=== PATIENT | male | born 1940 | race African-American/Black ===

== ENCOUNTER 2020-03-16 21:09 | Emergency (ER) | payer OTHER ==
[2020-03-16] MEDS ORDERED: LIDOCAINE VISCOUS 2% SOLN 15 ML UDC ONE (22:18)
[2020-03-16] MEDS ORDERED: ONDANSETRON 4 MG/2 ML VIAL ONE (22:50)
[2020-03-16] MEDS ORDERED: MORPHINE 4 MG/ML SYR ONE (22:50)
[2020-03-16] MEDS ORDERED: WATER FOR INJ,STERILE 10 ML ONE (23:31)
[2020-03-16] MEDS ORDERED: MEPERIDINE HCL 50 MG/ML ONE (23:39)
[2020-03-16 23:54] LABS: Absolute Lymphocytes (CBC) 2.9 K/uL (0.7-4.9); Basophils % 1.1 % (0-1.3); RBC Red Blood Cell Count 4.96 M/uL (4.33-5.43)
[2020-03-17 00:02] LABS: Potassium 3.7 mmol/L (3.5-5.1)
[2020-03-17 00:05] LABS: Urine Blood 3+ (NEG); Urine Glucose NEGATIVE (NEG); Urine Protein 2+ (NEG)
[2020-03-17 00:44] LABS: Urine Bacteria <20 /HPF (NONE SEEN); Urine Culture Reflex Order REFLEXED; Urine RBC >50 /HPF (NONE SEEN)
[2020-03-17] MEDS ORDERED: CIPROFLOXACIN 400mg IV 400 MG/200 ML BAG IV ONE (01:04)
--- NOTE | 2020-03-17 08:07 | ER ---
Nurse's Notes [facility] Name: Kade Benjamin Age: 79 yrs Sex: Male : 1940 Arrival Date: 03/16/2020 Time: 21:13 Bed 20 Private MD: Diagnosis: Acute retention of urine. Prostatemegaly. Elevated PSA. Urinary tract infection Presentation: 03/16 21:25 Chief complaint: Patient states: penile area area is hurting and blood in urine started rr5 2 weeks ago went to a doctor prescribed some medication ( doxycycline and hydrochrolot) but but 3-4 days ago my urine just dripping and it hurts a lot. denies any discharge. 21:25 Coronavirus screen: Client denies travel out of the [place] in the last 14 days. At this rr5 time, the client does not indicate any symptoms associated with coronavirus-19. Ebola Screen: Patient negative for fever greater than or equal to 101.5 degrees Fahrenheit, and additional compatible Ebola Virus Disease symptoms Patient denies exposure to infectious person. Patient denies travel to an Ebola-affected area in the 21 days before illness onset. Initial Sepsis Screen: Does the patient meet any 2 criteria? No. Patient's initial sepsis screen is negative. Does the patient have a suspected source of infection? No. Patient's initial sepsis screen is negative. Risk Assessment: Do you want to hurt yourself or someone else? Patient reports no desire to harm self or others. Onset of symptoms was February 2020. 21:25 Method Of Arrival: Ambulatory rr5 21:25 Acuity: MARGE 3 rr5 Historical: - Allergies: 21:32 No Known Allergies; rr5 - Home Meds: 21:32 hypertension medication [Active]; rr5 - PMHx: 21:32 Hypertension; rr5 - PSHx: 21:32 Appendectomy; rr5 - Immunization history:: Adult Immunizations not up to date. - Social history:: Smoking status: unknown Patient/guardian denies using alcohol, street drugs, tobacco products. Screenin:25 Abuse screen: Denies threats or abuse. Denies injuries from another. Nutritional rr5 screening: No deficits noted. Tuberculosis screening: No symptoms or risk factors identified. Fall Risk None identified. Total Flores Fall Scale indicates No Risk (0-24 pts). Assessment: 21:25 General: Appears in no apparent distress. uncomfortable, Behavior is calm, cooperative, rr5 appropriate for age. Pain: Complains of pain in pelvis and penile area Pain currently is 10 out of 10 on a pain scale. Quality of pain is described as aching, Pain began gradually, Is intermittent. 21:25 Neuro: Level of Consciousness is awake, alert, obeys commands, Oriented to person, rr5 place, time, situation. Cardiovascular: Capillary refill < 3 seconds Patient's skin is warm and dry. Respiratory: Airway is patent Respiratory effort is even, unlabored, Respiratory pattern is regular, symmetrical. GI: No signs and/or symptoms were reported involving the gastrointestinal system. : Urine is blood tinged, Reports cramping, incontinence, pain with urination. EENT: No signs and/or symptoms were reported regarding the EENT system. Derm: Skin is pink, warm \T\ dry. Musculoskeletal: Circulation, motion, and sensation intact. Capillary refill < 3 seconds. 22:15 Reassessment: tried to insert Larkin catheter, positive resistance. Ed provider aware rr5 will try to use coude. 03/17 00:01 Reassessment: Patient appears in no apparent distress at this time. Patient is alert, rr5 oriented x 3, equal unlabored respirations, skin warm/dry/pink. awaiting for laboratory results and CT scan procedure. 00:46 Reassessment: Patient appears in no apparent distress at this time. Patient is alert, rr5 oriented x 3, equal unlabored respirations, skin warm/dry/pink. send to CTscan Patient states symptoms have improved. 01:32 Reassessment: Patient appears in no apparent distress at this time. Patient is alert, rr5 oriented x 3, equal unlabored respirations, skin warm/dry/pink. awaiting for CT result. Patient states feeling better. Patient states symptoms have improved. 02:41 Reassessment: Patient appears in no apparent distress at this time. Patient and/or jb4 family updated on plan of care and expected duration. Pain level reassessed. Patient is alert, oriented x 3, equal unlabored respirations, skin warm/dry/pink. PT given contact information for DR. Jackson, and DR. Munoz and their office address . Vital Signs: 03/16 21:25 BP 173 / 122; Pulse 91; Resp 19; Temp 98.4; Pulse Ox 99% ; Weight 79.38 kg; Pain 10/10; rr5 22:40 BP 148 / 70; Pulse 85; Resp 17; Pulse Ox 99% ; rr5 23:30 BP 185 / 89; Pulse 110; Resp 16; Pulse Ox 99% ; Pain 10/10; rr5 03/17 00:00 BP 152 / 87; Pulse 80; Resp 16; Pulse Ox 99% ; Pain 0/10; rr5 00:45 BP 141 / 75; Pulse 75; Resp 16; Pulse Ox 99% ; rr5 02:00 BP 141 / 82; Pulse 86; Resp 16; Pulse Ox 100% on R/A; jb4 ED Course: 03/16 21:13 Patient arrived in ED. am2 21:25 Patient has correct armband on for positive identification. Bed in low position. Call rr5 light in reach. Side rails up X2. Pulse ox on. NIBP on. 21:27 Naveen Desai RN is Primary Nurse. rr5 21:28 Quang Mckee MD is Attending Physician. pkl 21:31 Triage completed. rr5 21:32 Arm band placed on. rr5 22:05 Bladder scan completed. 836 ml. rr5 22:40 Inserted saline lock: 20 gauge in right hand, using aseptic technique. rr5 23:30 Coud inserted, using sterile technique, 16 Fr. Returned bloody urine. To gravity rr5 drainage. Urine specimen collected. 23:59 Bladder irrigated via Larkin with 500 ml normal saline Patient tolerated well blood rr5 clots noted. 03/17 02:00 No provider procedures requiring assistance completed. IV discontinued, intact, jb4 bleeding controlled, No redness/swelling at site. Pressure dressing applied. 08:32 CT Abd/Pelvis - Without Contrast In Process Unspecified. EDMS Administered Medications: 03/16 22:40 Drug: morphine 4 mg {Note: rass 0.} Route: IVP; Site: right hand; rr5 23:10 Follow up: Response: No adverse reaction; RASS: Alert and Calm (0) rr5 22:40 Drug: Zofran (Ondansetron) 4 mg Route: IVP; Site: right hand; rr5 23:40 Follow up: Response: No adverse reaction rr5 23:30 Drug: Demerol 50 mg {Note: rass 0.} Route: IVP; Site: right hand; rr5 03/17 00:30 Follow up: Response: No adverse reaction; Pain is decreased; RASS: Alert and Calm (0) rr5 00:45 Drug: Ciprofloxacin 400 mg Volume: 200 ml; Route: IVPB; Infused Over: 60 mins; Site: rr5 right hand; Output: 00:30 Urine: 750ml (Larkin); Total: 750ml. rr5 02:00 Urine: 300ml (Larkin); Total: 1050ml. jb4 Outcome: 02:17 Discharge ordered by . pkreji 02:43 Discharged to home ambulatory, with family. jb4 02:43 Condition: stable 02:43 Discharge instructions given to patient, Instructed on discharge instructions, follow up and referral plans. medication usage, Demonstrated understanding of instructions, follow-up care, medications, Prescriptions given X 1. 02:43 Patient left the ED. jb4 Signatures: Dispatcher [employer] EDMS Qunag Mckee MD MD pkJhonny Puentes, RN RN jb4 Diana Jarvis Raymond, RN RN rr5
--- NOTE | 2020-03-17 08:07 | EDPHYS ---
Physician Documentation [facility] Name: Kade Benjamin Age: 79 yrs Sex: Male : 1940 Arrival Date: 03/16/2020 Time: 21:13 Bed 20 Private MD: ED Physician Quang Mckee HPI: 03/16 21:37 This 79 yrs old Black Male presents to ER via Ambulatory with complaints of Penile pkl Pain, Pain With Urination. 21:48 This 79 yrs old Black Male presents to ER via Ambulatory with complaints of Penile pkl Pain, Pain With Urination. 21:48 The patient presents with urinary symptoms, dribbling of urine, urinary frequency, pkl retention, blood in urine. Onset: The symptoms/episode began/occurred 1 month(s) ago, and became worse today. Historical: - Allergies: 21:32 No Known Allergies; rr5 - Home Meds: 21:32 hypertension medication [Active]; rr5 - PMHx: 21:32 Hypertension; rr5 - PSHx: 21:32 Appendectomy; rr5 - Immunization history:: Adult Immunizations not up to date. - Social history:: Smoking status: unknown Patient/guardian denies using alcohol, street drugs, tobacco products. ROS: 21:48 Eyes: Negative for injury, pain, redness, and discharge, ENT: Negative for injury, pkl pain, and discharge, Neck: Negative for injury, pain, and swelling, Cardiovascular: Negative for chest pain, palpitations, and edema, Respiratory: Negative for shortness of breath, cough, wheezing, and pleuritic chest pain. 21:48 Abdomen/GI: Negative for abdominal pain, nausea, vomiting, and diarrhea. 21:48 Back: Negative for acute changes. 21:48 : Positive for urinary symptoms, urinary frequency, small amounts, hematuria. 21:48 MS/extremity: Negative for acute changes. 21:48 Skin: Negative for rash. 21:48 Neuro: Negative for altered mental status. Exam: 21:48 Head/Face: Normocephalic, atraumatic. Eyes: Pupils equal round and reactive to light, pkl extra-ocular motions intact. Lids and lashes normal. Conjunctiva and sclera are non-icteric and not injected. Cornea within normal limits. Periorbital areas with no swelling, redness, or edema. ENT: Nares patent. No nasal discharge, no septal abnormalities noted. Tympanic membranes are normal and external auditory canals are clear. Oropharynx with no redness, swelling, or masses, exudates, or evidence of obstruction, uvula midline. Mucous membranes moist. Neck: Trachea midline, no thyromegaly or masses palpated, and no cervical lymphadenopathy. Supple, full range of motion without nuchal rigidity, or vertebral point tenderness. No Meningismus. Chest/axilla: Normal chest wall appearance and motion. Nontender with no deformity. No lesions are appreciated. Cardiovascular: Regular rate and rhythm with a normal S1 and S2. No gallops, murmurs, or rubs. Normal PMI, no JVD. No pulse deficits. Respiratory: Lungs have equal breath sounds bilaterally, clear to auscultation and percussion. No rales, rhonchi or wheezes noted. No increased work of breathing, no retractions or nasal flaring. 21:48 Abdomen/GI: Bowel sounds: normal, Palpation: abdomen is soft and non-tender, in all quadrants, Rectal exam: Prostate: enlarged, the exam is chaperoned by the nurse. 21:48 Back: Exam negative for acute changes. 21:48 : Exam negative for acute changes. 21:48 Musculoskeletal/extremity: Exam is negative for acute changes. 21:48 Skin: Exam negative for rash. 21:48 Neuro: Orientation: is normal, Mentation: is normal, Cranial nerves: grossly normal, Motor: is normal. Vital Signs: 21:25 BP 173 / 122; Pulse 91; Resp 19; Temp 98.4; Pulse Ox 99% ; Weight 79.38 kg; Pain 10/10; rr5 22:40 BP 148 / 70; Pulse 85; Resp 17; Pulse Ox 99% ; rr5 23:30 BP 185 / 89; Pulse 110; Resp 16; Pulse Ox 99% ; Pain 10/10; rr5 03/17 00:00 BP 152 / 87; Pulse 80; Resp 16; Pulse Ox 99% ; Pain 0/10; rr5 00:45 BP 141 / 75; Pulse 75; Resp 16; Pulse Ox 99% ; rr5 02:00 BP 141 / 82; Pulse 86; Resp 16; Pulse Ox 100% on R/A; jb4 MDM: 03/16 21:28 Patient medically screened. pkl 03/17 02:12 Data reviewed: vital signs, nurses notes, lab test result(s), radiologic studies, CT pkl scan. ED course: Patient feeling better. Discussed lab and CT Scan results with patient. Advised to follow up with Urologist in 2 to 3 days. Patient understood instructions. 03/16 22:49 Order name: CBC with Diff; Complete Time: 00:35 pkl 03/16 22:49 Order name: Chem 7; Complete Time: 00:35 pkl 03/16 22:49 Order name: Creatinine, Serum pkl 03/16 22:57 Order name: Psa Screen; Complete Time: 00:35 pkl 03/16 23:38 Order name: Urine Microscopic Only; Complete Time: 01:24 rr5 03/16 23:39 Order name: Urine Dipstick--Ancillary (enter results) tt3 03/16 22:14 Order name: Bladder Scanner; Complete Time: 22:14 rr5 03/16 22:14 Order name: Larkin; Complete Time: 23:59 rr5 03/17 00:40 Order name: Urine Culture pkl 03/17 00:40 Order name: CT Abd/Pelvis - Without Contrast pkl 03/16 22:14 Order name: Urine Dipstick-Ancillary (obtain specimen); Complete Time: 23:59 rr5 03/16 22:49 Order name: Saline Lock; Complete Time: 22:50 pkl 03/16 23:59 Order name: Bladder Irrigation; Complete Time: 23:59 rr5 Administered Medications: 03/16 22:40 Drug: morphine 4 mg {Note: rass 0.} Route: IVP; Site: right hand; rr5 23:10 Follow up: Response: No adverse reaction; RASS: Alert and Calm (0) rr5 22:40 Drug: Zofran (Ondansetron) 4 mg Route: IVP; Site: right hand; rr5 23:40 Follow up: Response: No adverse reaction rr5 23:30 Drug: Demerol 50 mg {Note: rass 0.} Route: IVP; Site: right hand; rr5 03/17 00:30 Follow up: Response: No adverse reaction; Pain is decreased; RASS: Alert and Calm (0) rr5 00:45 Drug: Ciprofloxacin 400 mg Volume: 200 ml; Route: IVPB; Infused Over: 60 mins; Site: rr5 right hand; Disposition: 03/17/20 02:17 Discharged to Home. Impression: Acute retention of urine. Prostatemegaly. Elevated PSA. Urinary tract infection. - Condition is Stable. - Prescriptions for Cipro 500 mg Oral Tablet - take 1 tablet by ORAL route every 12 hours for 7 days; 14 tablet. - Medication Reconciliation Form, Thank You Letter, Antibiotic Education, Prescription Opioid Use form. - Follow up: Private Physician; When: 2 - 3 days; Reason: Re-evaluation by your physician. - Problem is new. - Symptoms have improved. Signatures: Dispatcher [employer] EDMS Quang Mckee MD MD pkl Jhonny Álvarez, RN RN jb4 Naveen Desai RN RN rr5 Corrections: (The following items were deleted from the chart) 02:37 02:17 03/17/2020 02:17 Discharged to Home. Impression: Acute retention of urine. pkl Prostatemegaly. Elevated PSA. Urinary tract infection. Condition is Stable. Forms are Medication Reconciliation Form, Thank You Letter, Antibiotic Education, Prescription Opioid Use. Follow up: Private Physician; When: 2 - 3 days; Reason: Re-evaluation by your physician. Problem is new. Symptoms have improved. pkl 02:43 02:37 03/17/2020 02:17 Discharged to Home. Impression: Acute retention of urine. jb4 Prostatemegaly. Elevated PSA. Urinary tract infection. Condition is Stable. Prescriptions for Cipro 500 mg Oral Tablet - take 1 tablet by ORAL route every 12 hours for 7 days; 14 tablet. and Forms are Medication Reconciliation Form, Thank You Letter, Antibiotic Education, Prescription Opioid Use. Follow up: Private Physician; When: 2 - 3 days; Reason: Re-evaluation by your physician. Problem is new. Symptoms have improved. pkl
[2020-03-17 08:26] VITALS: TEMP 98.4
[2020-03-17 08:35] VITALS: BP 141/82; O2SAT 100
--- NOTE | 2020-03-17 11:06 | RAD REPORT ---
EXAM DESCRIPTION: CT - Abdomen Pelvis Wo Contrast - 03/17/2020 6:57 am CLINICAL HISTORY: 79 years Male Urine Retention TECHNIQUE: Contiguous axial images obtained through the abdomen and pelvis without IV contrast. Whitley nal and sagittal reformatted images provided. This CT exam was performed according to our departmental dose-optimization program, which includes on e or more of the following dose reduction techniques: automated exposure control, adjustment of the m A and/or kV according to patient size, and/or use of iterative reconstruction technique. COMPARISON: No prior exams provided for comparison. FINDINGS: There is mild to moderate bilateral hydroureteronephrosis. No urinary calculus. Bilateral renal cysts. Larkin catheter in place within the decompressed urinary bladder. There is at least moderate enlargeme nt of the prostate. Both the bladder and prostate are suboptimally evaluated on this noncontrast stud y. Distal esophageal diverticulum without inflammation. No visualized bowel inflammation, obstruction, p neumatosis, free intraperitoneal air, abscess, or ascites. Prior appendectomy. Scattered distal colon ic diverticuli. The lung bases, liver, pancreas, biliary tree, gallbladder, some bleeding, and adrenal glands are nor mal. Atherosclerosis without abdominal aortic aneurysm or retroperitoneal hemorrhage. Chronic degenerative changes of the spine. IMPRESSION: Mild/moderate bilateral hydroureteronephrosis. No urinary calculus. At least moderate en largement of the prostate with a Larkin catheter decompressing the urinary bladder. Both the bladder a nd prostate are suboptimally evaluated on this noncontrast study. No other acute abdominal or pelvic findings. Electronically signed by: Gretchen Denis MD 03/17/2020 1:51 AM CDT Due to temporary technical issues with the PACS/Fluency reporting system, reports are being signed by the in house radiologist without review as a courtesy to ensure prompt reporting. The interpreting r adiologist is fully responsible for the content of the report.
== END 2020-03-17 02:43 | disposition home or self-care (01) ==
LOC: ER 21:09
DX: N39.0 Urinary tract infection, site not specified (principal); R31.9 Hematuria, unspecified; R97.20 Elevated prostate specific antigen [PSA]; N40.0 Benign prostatic hyperplasia without lower urinary tract symptoms; I10 Essential (primary) hypertension
CPT/HCPCS: 87088; 85025; 87086; 80048; 36415; 74176; 51700; 96375; 96374; 99285; G0103; J2175; J2405; J0744; 81003; 81015

== ENCOUNTER 2020-05-06 09:09 | Day surgery (SDC) | payer OTHER ==
[2020-04-29 15:12] LABS: Absolute Lymphocytes (CBC) 2.1 K/uL (0.7-4.9); Basophils % 0.8 % (0-1.3); Hematocrit 44.2 % (39.6-49.0); Lymphocytes % 32.1 % (15.3-44.8)
[2020-04-29 15:21] LABS: Protime INR 1.05
--- NOTE | 2020-04-29 15:24 | RAD REPORT ---
EXAM DESCRIPTION: RAD - Chest Pa And Lat (2 Views) - 04/29/2020 3:10 pm CLINICAL HISTORY: pre op, pending bladder surgery COMPARISON: None TECHNIQUE: Frontal and lateral views of the chest were obtained. FINDINGS: The lungs are clear. Heart size is normal and central vasculature is within normal limit s. No pleural effusion or pneumothorax seen. No acute bony finding noted. No aortic abnormality. IMPRESSION: No acute cardiopulmonary process.
[2020-04-29 15:28] LABS: Potassium 3.4 mmol/L (3.5-5.1)
[~2020-05-06 09:09] MED LIST: AMPICILLIN SODIUM 2 GM in NA CHLORIDE 0.9% 100 ML IVPB ONE; Gentamicin Inj 160 MG in NA CHLORIDE 0.9% 100 ML IV ONE
[2020-05-06] MEDS ORDERED: Ringers Lactate 1,000 ML IV ONE (09:50)
[2020-05-06] MEDS ORDERED: FENTANYL CITR 100 MCG/2 ML ONE ×3 (12:05→13:31)
[2020-05-06] MEDS ORDERED: propofoL 200 MG/20 ML VIAL IV ONE ×2 (12:05→13:00)
[2020-05-06] MEDS ORDERED: LIDOCAINE 1% MPF 5 ML VIAL ONE (12:05)
[2020-05-06] MEDS ORDERED: EPHEDRINE SULF 50 MG/ML VIAL ONE (12:33)
[2020-05-06] MEDS ORDERED: NS 0.9% VIAL 10 ML ONE (12:33)
[2020-05-06] MEDS ORDERED: dexAMETHasone 10 MG/ML VIAL ONE (13:00)
[2020-05-06] MEDS ORDERED: ONDANSETRON 4 MG/2 ML VIAL ONE (13:01)
[2020-05-06] MEDS ORDERED: ROCURONIUM 50 MG/5 ML VIAL IV ONE (13:39)
[2020-05-06] MEDS ORDERED: NEOSTIGMINE 1 MG/ML -5 ML ONE (13:43)
[2020-05-06] MEDS ORDERED: GLYCOPYRROLATE 0.2 MG/ML SYR ONE (13:43)
[2020-05-06] MEDS ORDERED: NA CHLORIDE 0.9% 1,000 ML ONE ×2 (14:37→14:38)
[2020-05-06 14:41] VITALS: O2SAT 100
[2020-05-06 15:01] VITALS: TEMP 97.3
[2020-05-06] MEDS ORDERED: SUCCINYLCHOLINE 20 MG/ML (10 ML) IV ONE (15:23)
[2020-05-06 17:05] VITALS: BP 168/88
--- NOTE | 2020-05-07 08:41 | OP ---
Surgeon: SANDY DINERO Preoperative Diagnoses: 1.Bladder tumor. 2.Gross hematuria. 3.Significantly elevated PSA. Postoperative Diagnoses: 1.Bladder tumor. 2.Gross hematuria. 3.Significantly elevated PSA. Principal Procedures: 1.Cystoscopy, transurethral resection of a bladder neck tumor. 2.Channel transurethral resection of prostate. Indication For Proecdure: This is a 79-year-old gentleman who presented to the Urology Clinic with g ross hematuria and underwent evaluation revealing bilateral hydronephrosis and a large intravesically projecting tumor with clot burden. He was treated with antimicrobial therapy for 2 weeks given a si gnificantly elevated PSA and the potential for prostatitis prior to a urine cytology which revealed h igh-grade urothelial carcinoma cells suspicious. As such, he was counseled about the potential that there could be both a bladder tumor as well as prostate cancer and the need for more timely operative evaluation to form that diagnosis since a bladder cancer would be treated much differently than a pr ostate cancer. Findings: Large intravesically projecting bladder neck tumor with nodular growth undermining the tri gone and causing a hit up appearance of the bilateral ureteral orifices. Procedure Note: The patient was consented in the preoperative holding area before being transferred to the operative suite, where general anesthesia was induced. He was given ampicillin 2 g and gentam icin 160 mg IV antimicrobial prophylaxis. Pneumo boots were provided for DVT prophylaxis. He was pl aced in lithotomy position, padded and secured to the table appropriately. His genitalia were preppe d using Hibiclens, and he was draped in standard fashion. The case was begun using urethral sounds t o dilate his meatus and fossa navicularis to 30 [place]. Then, using a visual obturator and 27-[place] outer sheath for the bipolar resectoscope, the urethra was traversed and with great difficulty navig ated around an intravesically projecting mass extending from the median lobe portion of the prostate and involving also the right lateral lobe of the prostate causing significant difficulty navigating a nd entering into the bladder. However, I was able to enter the bladder and then began to survey it. There was significant gross hematuria and clot, and so the bladder was evacuated off that fluid and then yulisa evacuated off the clot. Once I was able to visualize the bladder wall in order to avoid p osterior injury, I began resecting the intravesically projecting component of the tumor and taking it down to smooth bladder neck fibers that were eventually visible. I then extended the resection arou nd to the right lateral lobe and remove the intravesically projecting component of the tumor there. I was intermittently able to visualize the left ureteral orifice and then ultimately was able to visu sadia the right ureter orifice. At one point during the case, the left ureteral orifice was no longe r visualized and was likely resected. The right ureteral orifice was subsequently visualized, but wa s again in an abnormal configuration because of nodular material/tumor beneath it. As such, care was taken to avoid extensive fulguration in the region of the putative left ureteral orifice, and I then turned my attention to the median lobe of the prostate. I then resected this down to the level of t he verumontanum creating a nice channel for voiding. Any additional anteriorly overhanging tumor was resected and the bladder was surveyed for any tumor and/or prostatic urethral chips. These were ell ik evacuated and sent for pathologic analysis. A careful search for bleeding was undertaken and agai n sparing the region around the putative left ureteral orifice that was resected, I fulgurated any bl eeding vessels at the bladder neck and within the prostatic urethral lumen and efflux of fluid was ve ry light pink, so the scope was removed with no arterial bleeding noted, and I replaced a 24-[place] 3 -way catheter with ease into his bladder. 30 cc were placed into the balloon and CBI was initiated w ith slow-moderate drip rate normal saline. The patient was then awakened from general anesthesia aft er being taken out of the lithotomy position, transferred to a stretcher, and then transferred to the recovery room in good condition. Complications: Resection of the left ureteral orifice. Disposition: Given the nodular presence of likely tumor beneath the trigone and obstructing the uret eral orifices causing bilateral hydronephrosis observed preoperatively and given the resection of the left ureteral orifice performed today likely, I will recommend followup ultrasound evaluation within the next 2-3 days to assess for progression of the hydronephrosis and potential need for percutaneou s nephrostomy tube placement. He will continue his antimicrobial therapy prescribed preoperatively, and we will plan removal of the 3 way Larkin catheter on either Monday or Monday in the Urology Clinic . Followup will then be established in 1-2 weeks to discuss pathology of the tumor resected, and sub sequent treatment will be determined from that point. We also will repeat his PSA once the urethral Larkin catheter is removed prior to his followup to discuss the pathology 1-2 weeks later. ROSALIND/CHUCK Voice ID: [id number] Report ID: [id number]
== END 2020-05-06 17:00 | disposition home or self-care (01) ==
LOC: OR 09:09
PROVIDERS: ATTEND Urology
PROC: 0TBC8ZZ Excision of Bladder Neck, Via Natural or Artificial Opening Endoscopic (ICD-10-PCS; 2020-05-06)
PROC: 0VB08ZZ Excision of Prostate, Via Natural or Artificial Opening Endoscopic (ICD-10-PCS; principal; 2020-05-06 11:00)
DX: C61 Malignant neoplasm of prostate (principal); Z20.828 Contact with and (suspected) exposure to other viral communicable diseases; I12.9 Hypertensive chronic kidney disease with stage 1 through stage 4 chronic kidney disease, or unspecified chronic kidney disease; N18.9 Chronic kidney disease, unspecified; C67.5 Malignant neoplasm of bladder neck; N99.81 Other intraoperative complications of genitourinary system; N13.30 Unspecified hydronephrosis
CPT/HCPCS: 93005; 85025; 80048; 36415; 85610; 88307; 85730; 71046; 53899; 52500; U0002; J2704 ×2; J0330; J1580; J3010 ×3; J1100; J2710; J7120; J7030 ×2; J2405; J0290; 88305

== ENCOUNTER 2021-08-02 20:13 | Emergency (ER) | payer OTHER ==
--- OUTSIDE RECORDS SUMMARY | 2021-08-02 20:15 | XMS REPORT | Continuity of Care Document ---
:1940 Author Organization [facility] Address [address] [place] [address] Care Team Providers Name Role Phone StoreyTylor Oneyda Attending Clinician Unavailable Problems This patient has no known problems. Allergies, Adverse Reactions, Alerts This patient has no known allergies or adverse reactions. Medications This patient has no known medications. Procedures This patient has no known procedures. Encounters Start End Encounter Admission Attending Care Care Encounter Source Date/Time Date/Time Type Type Clinicians Facility Department ID 2021-07-14 Outpatient Tylor Storey [facility] [id number] [facility] 13:02:23 [id number] [facility] 2021-07-14 Outpatient [facility] [id number] [facility] [address] 12:49:20 [id number] [facility] 2021-07-14 Outpatient [facility] [id number] [facility] 12:35:50 [id number] [facility] 2021-07-14 Outpatient [facility] [id number] [facility] 12:17:36 [id number] [facility] 2021-07-14 Outpatient [facility] [id number] [facility] 12:10:59 [id number] [facility] 2020-11-11 2020-11-11 Outpatient [facility] [id number] [facility] 2020-11-06 2020-11-06 [facility] [id number] [facility] 2020-10-15 2020-10-15 [facility] [id number] [facility] 2020-10-14 2020-10-14 [facility] [id number] [facility] 2020-09-24 2020-09-24 [facility] [id number] [facility] 2020-08-21 2020-08-21 Out[facility] [id number] [facility] 2020-08-20 2020-08-20 [facility] [id number] [facility] 2020-06-18 2020-06-18 [facility] [id number] [facility] 2020-06-15 2020-06-15 [facility] [id number] [facility] 2020-06-10 2020-06-10 Out[facility] [id number] [facility] 2020-05-26 2020-05-26 Out[facility] [id number] [facility] 2020-05-25 2020-05-25 Out[facility] [id number] [facility] Results This patient has no known results.
[2021-08-02] MEDS ORDERED: ONDANSETRON 4 MG/2 ML VIAL ONE (21:21)
[2021-08-02] MEDS ORDERED: MORPHINE 4 MG/ML SYR ONE ×2 (21:21→23:20)
[2021-08-02 21:36] LABS: Urine Blood 3+ (Negative); Urine Glucose Negative (Negative); Urine Protein 2+ (Negative); Urine Specific Gravity >=1.030 (1.005-1.030); Urine pH 5.5 (5.0-7.0)
[2021-08-02 22:35] LABS: SARS-COV-2 RT PCR NEGATIVE (NEGATIVE)
[2021-08-02 23:23] LABS: Absolute Lymphocytes (CBC) 1.7 K/uL (0.7-4.9); Hematocrit 43.3 % (39.6-49.0); Lymphocytes % 42.8 % (15.3-44.8); MPV 9.3 fL (7.6-11.3)
[2021-08-02 23:50] LABS: Albumin 3.3 g/dL (3.4-5.0); Bilirubin Direct 0.1 mg/dL (0-0.2); Bilirubin Total 0.5 mg/dL (0.2-1.0); Potassium 3.4 mmol/L (3.5-5.1); Protein, Total 7.4 g/dL (6.4-8.2)
[2021-08-02 23:57] LABS: Urine Bacteria <20 /HPF (NONE SEEN); Urine RBC >50 /HPF (NONE SEEN); Urine Urothelial Cells <5 /HPF (NONE SEEN)
--- NOTE | 2021-08-03 00:57 | EDPHYS ---
Physician Documentation [facility] Name: Kade Benjamin Age: 80 yrs Sex: Male : 1940 Arrival Date: 08/02/2021 Time: 20:16 Bed 24 Private MD: Tylor Storey T ED Physician Sumanth Foreman HPI: 08/02 20:47 This 80 yrs old Black Male presents to ER via Ambulatory with complaints of Flank Pain, pm1 Back Pain. 20:47 The patient complains of pain in the right mid back. The pain does not radiate. Onset: pm1 The symptoms/episode began/occurred 1 month(s) ago. Modifying factors: The symptoms are alleviated by nothing. the symptoms are aggravated by nothing. Associated signs and symptoms: Pertinent negatives: diarrhea, dysuria, fever, nausea, vomiting. Severity of pain: in the emergency department the pain is unchanged. The patient has not experienced similar symptoms in the past. Patient with current history of prostate cancer. Historical: - Allergies: 20:24 No Known Allergies; st1 - PMHx: 20:24 Hypertension; st1 - Immunization history:: Adult Immunizations up to date, Client reports receiving the 2nd dose of the Covid vaccine, Pneumococcal vaccine is up to date, Flu vaccine is up to date. - Social history:: Smoking status: Patient denies any tobacco usage or history of. - Code Status:: Full code. ROS: 20:47 Constitutional: Negative for fever, chills, and weight loss, Cardiovascular: Negative pm1 for chest pain, palpitations, and edema, Respiratory: Negative for shortness of breath, cough, wheezing, and pleuritic chest pain, Abdomen/GI: Negative for abdominal pain, nausea, vomiting, diarrhea, and constipation. 20:47 : Negative for injury, bleeding, discharge, and swelling, MS/Extremity: Negative for injury and deformity, Skin: Negative for injury, rash, and discoloration, Neuro: Negative for headache, weakness, numbness, tingling, and seizure. 20:47 Back: Positive for flank pain, on the right. 20:47 All other systems are negative. Exam: 20:47 Constitutional: This is a well developed, well nourished patient who is awake, alert, pm1 and in no acute distress. Head/Face: Normocephalic, atraumatic. 20:47 Skin: Warm, dry with normal turgor. Normal color with no rashes, no lesions, and no evidence of cellulitis. MS/ Extremity: Pulses equal, no cyanosis. Neurovascular intact. Full, normal range of motion. 20:47 Cardiovascular: Exam negative for acute changes, Rate: normal, Rhythm: regular, Pulses: no pulse deficits are appreciated, Heart sounds: normal. 20:47 Respiratory: Exam negative for acute changes, respiratory distress, shortness of breath, Breath sounds: are clear throughout. 20:47 Abdomen/GI: Exam negative for acute changes, Inspection: abdomen appears normal, Palpation: abdomen is soft and non-tender, in all quadrants. 20:47 Back: pain, that is mild, of the right mid back, vertebral tenderness, is not appreciated. 20:47 Neuro: Exam negative for acute changes, Orientation: is normal, Mentation: is normal, Motor: is normal, moves all fours. Vital Signs: 20:21 BP 141 / 83 Sitting; Pulse 87; Resp 16; Temp 97.8; Pulse Ox 99% on R/A; Weight 74.84 st1 kg; Height 5 ft. 11 in. (180.34 cm); Pain 10/10; 21:28 BP 135 / 86; Pulse 80; Resp 18; Pulse Ox 100% on R/A; lr4 22:49 BP 120 / 81; Pulse 76; Resp 18; Pulse Ox 100% on R/A; Pain 5/10; lr4 23:27 BP 114 / 84; Pulse 81; Resp 16; Pulse Ox 98% on R/A; lr4 08/03 01:40 BP 117 / 73; Pulse 69; Resp 16 S; Temp 98.5(O); Pulse Ox 99% on R/A; bb 08/02 20:21 Body Mass Index 23.01 (74.84 kg, 180.34 cm) st1 MDM: 08/02 20:34 Patient medically screened. [facility] 08/03 00:53 Data reviewed: vital signs. Data interpreted: Pulse oximetry: on room air is 98 %. pm1 Interpretation: normal. Counseling: I had a detailed discussion with the patient and/or guardian regarding: the historical points, exam findings, and any diagnostic results supporting the discharge/admit diagnosis, lab results, radiology results, the need for outpatient follow up, to return to the emergency department if symptoms worsen or persist or if there are any questions or concerns that arise at home. 08/02 20:47 Order name: Basic Metabolic Panel pm1 08/02 20:47 Order name: CBC with Diff pm1 08/02 20:47 Order name: Hepatic Function pm1 08/02 20:47 Order name: Lipase pm1 08/02 20:47 Order name: Basic Metabolic Panel; Complete Time: 23:54 EDMS 08/02 20:47 Order name: CBC with Automated Diff; Complete Time: 23:28 EDMS 08/02 20:47 Order name: Liver (Hepatic) Function; Complete Time: 23:54 EDMS 08/02 20:47 Order name: Lipase; Complete Time: 23:54 EDMS 08/02 21:36 Order name: Urine Dipstick-Ancillary; Complete Time: 22:08 EDMS 08/02 21:36 Order name: COVID-19/FLU A+B (Document "Date of Onset" if Symptomatic); Complete Time: cs9 22:45 08/02 22:07 Order name: Urine Microscopic Only; Complete Time: 00:09 lr4 08/02 22:46 Order name: CT Abd/Pelvis - IV Contrast Only pm1 08/02 23:59 Order name: Urine Culture EDMS 08/02 20:47 Order name: IV Saline Lock; Complete Time: 21:20 pm1 08/02 20:47 Order name: Labs collected and sent; Complete Time: 20:49 pm1 08/02 20:47 Order name: Urine Dipstick-Ancillary (obtain specimen); Complete Time: 21:37 pm1 Administered Medications: 08/02 21:27 Drug: morphine 4 mg Route: IVP; Site: left antecubital; lr4 21:37 Follow up: Response: Pain is decreased lr4 21:27 Drug: Zofran (Ondansetron) 4 mg Route: IVP; Site: left antecubital; lr4 21:37 Follow up: Response: Nausea is decreased lr4 23:21 Drug: morphine 4 mg Route: IVP; Site: left antecubital; lr4 23:44 Follow up: Response: No adverse reaction; Pain is decreased lr4 08/03 01:32 Drug: Rocephin (cefTRIAXone) 1 grams Route: IV; Rate: calculated rate; Site: left bb antecubital; 01:40 Follow up: IV Status: Completed infusion; IV Intake: 50ml bb Disposition: 09:01 Co-signature as Attending Physician, Sumanth Foreman MD I agree with the assessment and alessandro plan of care. Disposition Summary: 08/03/21 00:56 Discharge Ordered Location: Home pm1 Problem: new pm1 Symptoms: have improved pm1 Condition: Stable pm1 Diagnosis - Other intra-abdominal and pelvic swelling, mass and lump - bladder mass pm1 Followup: pm1 - With: Emergency Department - When: As needed - Reason: Worsening of condition Followup: pm1 - With: Private Physician - When: 2 - 3 days - Reason: Recheck today's complaints, Continuance of care, Re-evaluation by your physician Discharge Instructions: - Discharge Summary Sheet pm1 Forms: - Medication Reconciliation Form pm1 - Thank You Letter pm1 - Antibiotic Education pm1 - Prescription Opioid Use pm1 Prescriptions: - Bactrim DS 800-160 mg Oral Tablet - take 1 tablet by ORAL route every 12 hours for 10 days; 20 tablet; Refills: 0, pm1 Product Selection Permitted - Tylenol-Codeine #3 300 mg-30 mg Oral - take 2 tablet by ORAL route every 6 hours As needed; 20 tablet; Refills: 0, pm1 Product Selection Permitted Signatures: Dispatcher [employer] Sumanth Flower MD MD cha Ballard, Brenda, RN RN bb Shimon Yoo, GUILHERME DIRECTOR OF ACCREDITATION pm1 Maddison Rand RN RN st1 Kyra Arango RN RN lr4 Corrections: (The following items were deleted from the chart) 08/02 23:55 22:47 Abdomen Pelvis W Con+CT.RAD.BRZ ordered. EDMS EDMS
--- NOTE | 2021-08-03 00:57 | ER ---
Nurse's Notes [facility] Name: Kade Benjamin Age: 80 yrs Sex: Male : 1940 Arrival Date: 08/02/2021 Time: 20:16 Bed 24 Private MD: Tylor Storey T Diagnosis: Other intra-abdominal and pelvic swelling, mass and lump-bladder mass Presentation: 08/02 20:21 Chief complaint: Patient states: pain in the right abdomen radiates to the back since 1 st1 month. The pain got worse today. Coronavirus screen: Vaccine status: Patient reports receiving the 2nd dose of the covid vaccine. Moderna Client denies travel out of the [place] in the last 14 days. Ebola Screen: No symptoms or risks identified at this time. Risk Assessment: Do you want to hurt yourself or someone else? Patient reports no desire to harm self or others. 20:21 Method Of Arrival: Ambulatory st1 20:21 Acuity: MARGE 3 st1 20:40 Initial Sepsis Screen: Does the patient meet any 2 criteria? No. Patient's initial lr4 sepsis screen is negative. Does the patient have a suspected source of infection? No. Patient's initial sepsis screen is negative. 20:41 Onset of symptoms was July 02, 2021. lr4 Triage Assessment: 20:25 General: Appears in no apparent distress. comfortable, slender, well groomed, Behavior st1 is calm, cooperative. Neuro: No deficits noted. Musculoskeletal: No deficits noted. 20:36 General: Appears in no apparent distress. comfortable, well groomed, well developed, lr4 well nourished, Behavior is calm, cooperative. Pain: Complains of pain in abdomen Pain radiates to back Pain currently is 4 out of 10 on a pain scale. Quality of pain is described as sharp, Pain began few weeks ago. Is intermittent, Aggravated by eating. Neuro: No deficits noted. Cardiovascular: No deficits noted. Respiratory: No deficits noted. GI: Abdomen is flat, non-distended, Bowel sounds present X 4 quads. Reports lower abdominal pain, Patient currently denies bloody stool, diarrhea, nausea, vomiting. Historical: - Allergies: 20:24 No Known Allergies; st1 - PMHx: 20:24 Hypertension; st1 - Immunization history:: Adult Immunizations up to date, Client reports receiving the 2nd dose of the Covid vaccine, Pneumococcal vaccine is up to date, Flu vaccine is up to date. - Social history:: Smoking status: Patient denies any tobacco usage or history of. - Code Status:: Full code. Screenin:40 Abuse screen: Denies threats or abuse. Nutritional screening: No deficits noted. lr4 Tuberculosis screening: No symptoms or risk factors identified. Fall Risk None identified. Assessment: 22:50 Reassessment: Patient is alert, oriented x 3, equal unlabored respirations, skin lr4 warm/dry/pink. Pt rates pain in rlq 5/10 on pain scale. Patient states symptoms have improved. 08/03 01:42 Reassessment: Patient is alert, oriented x 3, equal unlabored respirations, skin bb warm/dry/pink. pt verbalized understanding of and agrees to plan of care discharge instructions given pt ambulated with steady gait to exit accompanied by family. Vital Signs: 08/02 20:21 BP 141 / 83 Sitting; Pulse 87; Resp 16; Temp 97.8; Pulse Ox 99% on R/A; Weight 74.84 st1 kg; Height 5 ft. 11 in. (180.34 cm); Pain 10/10; 21:28 BP 135 / 86; Pulse 80; Resp 18; Pulse Ox 100% on R/A; lr4 22:49 BP 120 / 81; Pulse 76; Resp 18; Pulse Ox 100% on R/A; Pain 5/10; lr4 23:27 BP 114 / 84; Pulse 81; Resp 16; Pulse Ox 98% on R/A; lr4 08/03 01:40 BP 117 / 73; Pulse 69; Resp 16 S; Temp 98.5(O); Pulse Ox 99% on R/A; bb 08/02 20:21 Body Mass Index 23.01 (74.84 kg, 180.34 cm) st1 ED Course: 08/02 20:16 Patient arrived in ED. es 20:16 Tylor Storey MD is Private Physician. es 20:24 Triage completed. st1 20:25 Arm band placed on right wrist. st1 20:27 Shimon Yoo NP is PHCP. pm1 20:27 Sumanth Foreman MD is Attending Physician. pm1 20:40 No provider procedures requiring assistance completed. lr4 20:41 Patient has correct armband on for positive identification. Bed in low position. Call lr4 light in reach. Side rails up X 1. Adult w/ patient. library monitor on. Pulse ox on. NIBP on. Door closed. Warm blanket given. Verbal reassurance given. 20:49 Basic Metabolic Panel Sent. ss7 20:49 CBC with Diff Sent. ss7 20:49 Hepatic Function Sent. ss7 20:49 Lipase Sent. ss7 21:20 Inserted saline lock: 20 gauge in left antecubital area, using aseptic technique. lr4 21:38 Liver (Hepatic) Function Sent. lr4 21:38 Lipase Sent. lr4 21:38 CBC with Automated Diff Sent. lr4 21:38 Basic Metabolic Panel Sent. lr4 21:42 COVID-19/FLU A+B (Document "Date of Onset" if Symptomatic) Sent. lr4 22:01 COVID-19/FLU A+B (Document "Date of Onset" if Symptomatic) Sent. lr4 22:33 Urine Microscopic Only Sent. lr4 08/03 00:00 Report given to jim. lr4 00:19 CT Abd/Pelvis - IV Contrast Only In Process Unspecified. EDMS 01:40 IV discontinued, intact, bleeding controlled, No redness/swelling at site. Pressure bb dressing applied. Administered Medications: 08/02 21:27 Drug: morphine 4 mg Route: IVP; Site: left antecubital; lr4 21:37 Follow up: Response: Pain is decreased lr4 21:27 Drug: Zofran (Ondansetron) 4 mg Route: IVP; Site: left antecubital; lr4 21:37 Follow up: Response: Nausea is decreased lr4 23:21 Drug: morphine 4 mg Route: IVP; Site: left antecubital; lr4 23:44 Follow up: Response: No adverse reaction; Pain is decreased lr4 08/03 01:32 Drug: Rocephin (cefTRIAXone) 1 grams Route: IV; Rate: calculated rate; Site: left bb antecubital; 01:40 Follow up: IV Status: Completed infusion; IV Intake: 50ml bb Intake: 01:40 IV: 50ml; Total: 50ml. bb Outcome: 08/02 20:40 Condition: stable lr4 08/03 00:56 Discharge ordered by . pm1 01:44 Discharged to home ambulatory, with family. bb 01:44 Condition: stable 01:44 Discharge instructions given to 01:44 Discharge instructions given to patient, Instructed on discharge instructions, follow up and referral plans. medication usage, Demonstrated understanding of instructions, follow-up care, medications, Prescriptions given X 2. 01:45 Patient left the ED. bb Signatures: Dispatcher [employer] Afsaneh Nation Brenda RN RN bb Shimon Yoo, MOLDER FOAM RUBBER MOLDER FOAM RUBBER pm1 Maddison Rand RN RN st1 Ban Cotton RN RN ss7 Kyra Arango RN RN lr4
[2021-08-03] MEDS ORDERED: NA CHLORIDE 0.9% 50 ML ONE (01:31)
[2021-08-03] MEDS ORDERED: CEFTRIAXONE 1000 MG/VIAL ONE (01:31)
[2021-08-03 02:09] VITALS: BP 117/73; TEMP 98.5; O2SAT 99
--- NOTE | 2021-08-03 11:28 | RAD REPORT ---
EXAM DESCRIPTION: CT - Abdomen Pelvis W Contrast - 08/03/2021 6:27 am CLINICAL HISTORY: 80 years, Male, FLANK PAIN COMPARISON: 01/13/2021 TECHNIQUE: Contrast-enhanced images of the abdomen and pelvis were performed utilizing 5 mm slice th ickness at 5 mm interval reconstruction from the lung bases to the ischial tuberosities after the adm inistration IV contrast. In addition multiplanar reformats in the coronal and sagittal plane were obtained and reviewed. This exam was performed according to our departmental dose-optimization protocol, which includes auto mated exposure control, adjustment of the mA and/or kV according to patient size and/or use of iterat kathleen reconstruction technique. FINDINGS: The lung bases demonstrate to be clear. There is a small hiatal hernia The liver, pancreas, spleen and adrenal glands demonstrate to be unremarkable, no focal lesions are n oted. The gallbladder demonstrate to be somewhat distended. Mild prominence of the common bile duct a lthough no definitive biliary duct dilatation is identified. The kidneys demonstrate normal uptake of contrast media. No evidence for nephrolithiasis and/or hydro nephrosis. The kidneys demonstrated presence of several bilateral renal cysts, the largest one inferi or left parapelvic region measuring 6.7 x 3.6 cm on image 40. Grossly the unopacified stomach, small bowel and large bowel demonstrate to be within normal limits. There is no evidence for bowel dilatation and/or free air. The appendix was not visualized. There i s diverticulosis within the sigmoid colon. The urinary bladder demonstrate the presence of a high density structure posterior right lateral wall measuring approximately 3.1 x 3.7 cm perhaps corresponding to enhancing mass less likely the possibi lity of the hemorrhage could be of consideration. Further evaluation with direct visualization could be of assistance. The prostate gland demonstrate to be within normal limits. The aorta demonstrat e minimal atheromatous plaque dimension extending into the aortic bifurcation. There is no retroper itoneal lymphadenopathy. There is no evidence for ascites or and/or significant abnormal fluid collec tions. The rest of the soft tissue and bony structures are within normal limits. IMPRESSION: High density structure posterior right lateral wall of the urinary bladder, perhaps zully esponding to a enhancing mass less likely the possibility of the hemorrhage could be of consideration . Further evaluation with direct visualization could be of assistance. Bilateral renal cysts. Small hiatal hernia. Electronically signed by: Franco Felipe MD 08/03/2021 12:36 AM ASSOCIATE TEACHER Due to temporary technical issues with the PACS/Fluency reporting system, reports are being signed by the in house radiologist without review as a courtesy to ensure prompt reporting. The interpreting r adiologist is fully responsible for the content of the report.
== END 2021-08-03 01:45 | disposition home or self-care (01) ==
LOC: ER 20:13
DX: N32.9 Bladder disorder, unspecified (principal); I10 Essential (primary) hypertension; Z20.822 Contact with and (suspected) exposure to COVID-19
CPT/HCPCS: 87088; 85025; 87086; 80048; 36415; 80076; 83690; 0240U; 74177; Q9967; J2405; 81003; 81015; 96374; 96375; 99284

== ENCOUNTER 2021-08-10 10:13 | Emergency (ER) | payer OTHER ==
--- OUTSIDE RECORDS SUMMARY | 2021-08-10 10:18 | XMS REPORT | Continuity of Care Document ---
:1940 Author Organization [facility] Address [address] [place] [address] Care Team Providers Name Role Phone Raleigh Tylor Call Attending Clinician Unavailable Problems This patient has no known problems. Allergies, Adverse Reactions, Alerts This patient has no known allergies or adverse reactions. Medications This patient has no known medications. Procedures This patient has no known procedures. Encounters Start End Encounter Admission Attending Care Care Encounter Source Date/Time Date/Time Type Type Clinicians Facility Department ID 2021-07-[address] [facility] [id number] 13:02:23 [id number] [facility] 2021-07-[address] [facility] [id number] 12:49:20 [id number] [facility] 2021-07-[address] [facility] [id number] 12:35:50 [id number] [facility] 2021-07-[address] [facility] [id number] 12:17:36 [id number] [facility] 2021-07-[address] [facility] [id number] 12:10:59 [id number] [facility] 2020-11-11 2020-11-[address] [facility] [id number] [facility] 2020-11-06 2020-11-06 Outpatient [facility] [id number] [facility] 2020-10-15 2020-10-15 Outpatient [facility] [id number] [facility] 2020-10-14 2020-10-14 Out[facility] [id number] [facility] 2020-09-24 2020-09-24 Out[facility] [id number] [facility] 2020-08-21 2020-08-21 Outpatient [facility] [id number] [facility] 2020-08-20 2020-08-20 Out[facility] [id number] [facility] 2020-06-18 2020-06-18 Out[facility] [id number] [facility] 2020-06-15 2020-06-15 Outpatient [facility] [id number] [facility] 2020-06-10 2020-06-10 Out[facility] [id number] [facility] 2020-05-26 2020-05-26 Outpatient [facility] [id number] [facility] 2020-05-25 2020-05-25 Outpatient [facility] [id number] [facility] Results This patient has no known results.
[2021-08-10 11:52] LABS: Absolute Lymphocytes (CBC) 1.1 K/uL (0.7-4.9); Hematocrit 47.3 % (39.6-49.0); Lymphocytes % 23.5 % (15.3-44.8); MPV 9.4 fL (7.6-11.3); RBC Red Blood Cell Count 5.53 M/uL (4.33-5.43)
[2021-08-10 12:07] LABS: Albumin 3.9 g/dL (3.4-5.0); Bilirubin Direct 0.2 mg/dL (0-0.2); Bilirubin Total 0.6 mg/dL (0.2-1.0); Potassium 4.1 mmol/L (3.5-5.1); Protein, Total 8.4 g/dL (6.4-8.2)
[2021-08-10] MEDS ORDERED: NA CHLORIDE 0.9% 1,000 ML ONE (13:06)
--- NOTE | 2021-08-10 13:19 | RAD REPORT ---
EXAM DESCRIPTION: CT - Abdomen Pelvis W Contrast - 08/10/2021 12:30 pm CLINICAL HISTORY: ABD PAIN, history of prostate cancer COMPARISON: Abdomen Pelvis W Contrast dated 08/03/2021; Thoracic Spine W/Wo Contr dated 02/02/2021; Chest Abdomen Pelvis W Cont dated 01/13/2021 TECHNIQUE: Biphasic, helical CT imaging of the abdomen and pelvis was performed following 75 ml non- ionic IV contrast. No oral contrast administered. All CT scans are performed using dose optimization technique as appropriate and may include automated exposure control or mA/KV adjustment according to patient size. FINDINGS: No mass or nodule in the lung parenchyma. No pneumothorax or pleural effusion. No cardiome jayden or pericardial effusion seen. Small hiatal hernia is present. The liver, spleen, and pancreas show no suspicious findings. Gallbladder and biliary tree are also wi thout suspicious finding. Symmetric renal function is seen with no hydronephrosis or suspicious renal mass. No pyelonephritis o r acute parenchymal process. Bilateral simple renal cysts are present. The patient does have a cluste r of 5 cysts in the lower left kidney largest at 4.7 cm. These cysts show benign characteristics. No adrenal abnormalities. In the lateral right base of the urinary bladder there is an approximately 3.3 centimeter lobulated e nhancing mass. This is a typical appearance for urinary bladder malignancy. This is similar to the fi nding reported on the July study. It is unknown if this mass has had tissue sampling. No dilated bowel loops or bowel wall thickening. No free air, free fluid or inflammatory stranding. No hernia, mass or bulky lymphadenopathy. Bone destructive changes involve the T9 body with approximately 50% loss in height. Posterior wall is maintained; however, there is paraspinal mass that extends into the central canal. A grossly 7 x 2 c entimeter paraspinal soft tissue mass is present along the anterior and right lateral aspect of T9. T here are numerous metastatic lesions throughout the spine most of which are lytic. 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 Central canal detail is inherently limited on CT imaging. Flattening of the cord and central spinal s tenosis are likely present but are better assessed with contrast-enhanced MRI imaging. Findings are n ot substantially different from short interval August 03 imaging. Further cord compression from pro gressive vertebral body collapse is of concern. Approximately 3.3 centimeter lobulated mass in the right-side of the bladder not significantly differ ent from July. 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 Correlation is needed to determine i f there has been tissue sampling performed or if this is a known finding. No acute GI or finding.
--- NOTE | 2021-08-10 14:38 | ER ---
Nurse's Notes [facility] Name: Kade Benjamin Age: 80 yrs Sex: Male : 1940 Arrival Date: 08/10/2021 Time: 10:18 Bed 7 Private MD: Tylor Storey T Diagnosis: Pain in thoracic spine-With pathological compression fracture, with spinal cord compression Presentation: 08/10 10:23 Chief complaint: Patient states: he was being seen at the cancer center today, and was ap3 sent over to the emergency department today for abdominal and back pain. Patient reports he has had this pain for some time, and was evaluated last week in the ED for the same complaint. Patient states the pain is unchanged from last week. Coronavirus screen: At this time, the client does not indicate any symptoms associated with coronavirus-19. Ebola Screen: No symptoms or risks identified at this time. Initial Sepsis Screen: Does the patient meet any 2 criteria? No. Patient's initial sepsis screen is negative. Does the patient have a suspected source of infection? No. Patient's initial sepsis screen is negative. Risk Assessment: Do you want to hurt yourself or someone else? Patient reports no desire to harm self or others. Onset of symptoms was July 20, 2021. 10:23 Method Of Arrival: Wheelchair ap3 10:23 Acuity: MARGE 3 ap3 Triage Assessment: 10:26 General: Appears in no apparent distress. Behavior is calm, cooperative. Pain: ap3 Complains of pain in back and abdomen Pain currently is 10 out of 10 on a pain scale. Aggravated by drinking. Neuro: Level of Consciousness is awake, alert, obeys commands, Oriented to person, place, time, situation, Appropriate for age. Cardiovascular: Patient's skin is warm and dry. Respiratory: Airway is patent Respiratory effort is even, unlabored, Respiratory pattern is regular, symmetrical. GI: Reports lower abdominal pain, upper abdominal pain. Historical: - Allergies: 10:25 No Known Allergies; ap3 - Home Meds: 10:25 amlodipine oral [Active]; unknown pain medications [Active]; unknown cancer medications ap3 [Active]; - PMHx: 10:25 Hypertension; prostate cancer; ap3 - Immunization history:: Client reports receiving the 2nd dose of the Covid vaccine, Flu vaccine is up to date. - Social history:: Smoking status: Patient denies any tobacco usage or history of. - Family history:: not pertinent. Screenin:28 Abuse screen: Denies threats or abuse. Nutritional screening: cancer patient.. ap3 Tuberculosis screening: No symptoms or risk factors identified. 14:00 Fall Risk None identified. ww Assessment: 12:05 General: Appears in no apparent distress. Behavior is calm, cooperative. Pain: ww Complains of pain in abdomen. Neuro: Level of Consciousness is awake, alert, obeys commands, Oriented to person, place, time, situation, Moves all extremities. Speech is normal. Cardiovascular: Capillary refill < 3 seconds Patient's skin is warm and dry. Respiratory: Airway is patent Respiratory effort is even, unlabored, Respiratory pattern is regular, symmetrical. GI: Abdomen is non-distended, Abd is soft X 4 quads. :. Derm: Skin is intact, Skin is pink, warm \T\ dry. 13:30 Reassessment: Patient appears in no apparent distress at this time. No changes from ww previously documented assessment. Patient and/or family updated on plan of care and expected duration. Pain level reassessed. Patient is alert, oriented x 3, equal unlabored respirations, skin warm/dry/pink. 15:37 Reassessment: Patient appears in no apparent distress at this time. Patient and/or ww family updated on plan of care and expected duration. Pain level reassessed. Patient is alert, oriented x 3, equal unlabored respirations, skin warm/dry/pink. 16:15 Reassessment: Patient appears in no apparent distress at this time. No changes from ww previously documented assessment. Patient and/or family updated on plan of care and expected duration. Pain level reassessed. Patient is alert, oriented x 3, equal unlabored respirations, skin warm/dry/pink. report called to ESTEFANY Roberts at [facility]. MOT signed by patient.. Vital Signs: 10:23 BP 117 / 81; Pulse 96; Resp 17; Temp 98.6(TE); Pulse Ox 100% ; Weight 71.67 kg; Height ap3 5 ft. 11 in. (180.34 cm); Pain 10/10; 12:00 BP 135 / 86; Pulse 77; Resp 18; Pulse Ox 98% ; ww 13:05 BP 132 / 84; Pulse 78; Resp 18; Pulse Ox 98% on R/A; ww 14:00 BP 136 / 83; Pulse 76; Resp 18; Pulse Ox 98% on R/A; ww 15:35 BP 160 / 90; Pulse 78; Resp 18; Temp 98.0; Pulse Ox 99% on R/A; ph 10:23 Body Mass Index 22.04 (71.67 kg, 180.34 cm) ap3 ED Course: 10:18 Patient arrived in ED. mr 10:19 Tylor Storey MD is Private Physician. mr 10:25 Triage completed. ap3 10:28 Arm band placed on right wrist. ap3 11:01 Priscilla Main MD is Attending Physician. ma2 12:30 Patient has correct armband on for positive identification. Placed in gown. Bed in low ww position. Call light in reach. Side rails up X2. underwriting support manager on. Pulse ox on. NIBP on. 12:30 Inserted saline lock: in left antecubital area, using aseptic technique. Blood ww collected. 12:31 CT Abd/Pelvis - IV Contrast Only In Process Unspecified. EDMS 14:17 initiated transfer to [facility]. bd 15:38 Lynn Shrestha, RN is Primary Nurse. ph 15:50 pt accepted in transfer to [facility] by dr Foley, admin approval given bd by Nae Page. 17:10 No provider procedures requiring assistance completed. ww Administered Medications: 13:08 Drug: NS 0.9% 1000 ml Route: IV; Rate: 1 bolus; Site: left antecubital; kd3 14:45 Follow up: Response: No adverse reaction; IV Status: Completed infusion; IV Intake: ph 1000ml 14:42 Drug: Decadron - Dexamethasone 6 mg Route: IVP; Site: left antecubital; ss7 15:00 Follow up: Response: No adverse reaction ph Intake: 14:45 IV: 1000ml; Total: 1000ml. ph Outcome: 14:38 ER care complete, transfer ordered by . ma2 17:09 Transferred by ground EMS to [facility], Transfer form completed. ww X-rays sent w/ patient. 17:09 Condition: stable 17:09 Instructed on the need for transfer. 17:10 Patient left the ED. ww Signatures: Dispatcher [employer] EDMS Mariam Gillette Peña, Patricia mr Lynn Shrestha, RN RN ph Priscilla Main MD MD ma2 Diana Coats RN RN ap3 Ashley Ayoub, RN RN kd3 Tanna Jiménez, RN RN ww Yury, Ban, RN RN ss7
--- NOTE | 2021-08-10 14:39 | EDPHYS ---
Physician Documentation [facility] Name: Kade Benjamin Age: 80 yrs Sex: Male : 1940 Arrival Date: 08/10/2021 Time: 10:18 Bed 7 Private MD: Tylor Storey T ED Physician Priscilla Main HPI: 08/10 12:55 This 80 yrs old Black Male presents to ER via Wheelchair with complaints of Abdominal ma2 Pain, Dehydration. 12:55 Onset: The symptoms/episode began/occurred gradually, 3 day(s) ago. Associated signs ma2 and symptoms: Pertinent negatives: anorexia, constipation, dysuria. Severity of pain: At its worst the pain was mild in the emergency department the pain is unchanged. The patient has not experienced similar symptoms in the past. Historical: - Allergies: 10:25 No Known Allergies; ap3 - Home Meds: 10:25 amlodipine oral [Active]; unknown pain medications [Active]; unknown cancer medications ap3 [Active]; - PMHx: 10:25 Hypertension; prostate cancer; ap3 - Immunization history:: Client reports receiving the 2nd dose of the Covid vaccine, Flu vaccine is up to date. - Social history:: Smoking status: Patient denies any tobacco usage or history of. - Family history:: not pertinent. ROS: 12:55 Constitutional: Negative for fever, chills, and weight loss. ma2 12:55 All other systems are negative. Exam: 12:55 Constitutional: This is a well developed, well nourished patient who is awake, alert, ma2 and in no acute distress. Neck: Trachea midline, no thyromegaly or masses palpated, and no cervical lymphadenopathy. Supple, full range of motion without nuchal rigidity, or vertebral point tenderness. No Meningismus. Chest/axilla: Normal chest wall appearance and motion. Nontender with no deformity. No lesions are appreciated. Cardiovascular: Regular rate and rhythm with a normal S1 and S2. No gallops, murmurs, or rubs. Normal PMI, no JVD. No pulse deficits. Respiratory: Lungs have equal breath sounds bilaterally, clear to auscultation and percussion. No rales, rhonchi or wheezes noted. No increased work of breathing, no retractions or nasal flaring. Abdomen/GI: Soft, non-tender, with normal bowel sounds. No distension or tympany. No guarding or rebound. No evidence of tenderness throughout. Skin: Warm, dry with normal turgor. Normal color with no rashes, no lesions, and no evidence of cellulitis. MS/ Extremity: Pulses equal, no cyanosis. Neurovascular intact. Full, normal range of motion. Vital Signs: 10:23 BP 117 / 81; Pulse 96; Resp 17; Temp 98.6(TE); Pulse Ox 100% ; Weight 71.67 kg; Height ap3 5 ft. 11 in. (180.34 cm); Pain 10/10; 12:00 BP 135 / 86; Pulse 77; Resp 18; Pulse Ox 98% ; ww 13:05 BP 132 / 84; Pulse 78; Resp 18; Pulse Ox 98% on R/A; ww 14:00 BP 136 / 83; Pulse 76; Resp 18; Pulse Ox 98% on R/A; ww 15:35 BP 160 / 90; Pulse 78; Resp 18; Temp 98.0; Pulse Ox 99% on R/A; ph 10:23 Body Mass Index 22.04 (71.67 kg, 180.34 cm) ap3 MDM: 11:21 Patient medically screened. ma2 14:28 Differential diagnosis: CT abdomen shows. ma2 14:35 Data reviewed: vital signs, nurses notes. Counseling: I had a detailed discussion with ma2 the patient and/or guardian regarding: the historical points, exam findings, and any diagnostic results supporting the discharge/admit diagnosis, the presence of at least one elevated blood pressure reading (>120/80) during this emergency department visit, the need for outpatient follow up, the need to transfer to another facility. ED course: CT shows pathological T9 fracture with cord compression, patient needs neurosurgery evaluation this service not available in our hospital we will transfer to higher level of care. Discussed with Dr. Robles from [facility]. He accepted the patient. Recommend Decadron IV 6 mg every 6 hours. 08/10 11:39 Order name: Basic Metabolic Panel; Complete Time: 12:46 ph 08/10 11:39 Order name: CBC with Diff; Complete Time: 11:56 ph 08/10 11:39 Order name: Hepatic Function; Complete Time: 12:46 ph 08/10 11:39 Order name: Lipase; Complete Time: 12:46 ph 08/10 14:17 Order name: COVID-19 SARS RT PCR (Document "Date of Onset" if Symptomatic) bd 08/10 15:33 Order name: Urine Dipstick-Ancillary EDNJ 08/10 11:39 Order name: IV Saline Lock; Complete Time: 11:39 ph 08/10 11:39 Order name: Labs collected and sent; Complete Time: 11:39 ph 08/10 11:57 Order name: CT Abd/Pelvis - IV Contrast Only; Complete Time: 13:22 ma2 08/10 11:57 Order name: Urine Dipstick-Ancillary (obtain specimen); Complete Time: 15:33 ma2 Administered Medications: 13:08 Drug: NS 0.9% 1000 ml Route: IV; Rate: 1 bolus; Site: left antecubital; kd3 14:45 Follow up: Response: No adverse reaction; IV Status: Completed infusion; IV Intake: ph 1000ml 14:42 Drug: Decadron - Dexamethasone 6 mg Route: IVP; Site: left antecubital; ss7 15:00 Follow up: Response: No adverse reaction ph Disposition Summary: 08/10/21 14:38 Transfer Ordered Transfer Location: [facility] ma2 Reason: Higher level of care ma2 Condition: Stable ma2 Problem: new ma2 Symptoms: are unchanged ma2 Accepting Physician: Dr. Robles and Dr. Amin(08/10/21 17:10) ww Diagnosis - Pain in thoracic spine - With pathological compression fracture, with spinal cord ma2 compression Forms: - Medication Reconciliation Form ma2 - SBAR form ma2 Signatures: Dispatcher [employer] EDMS Lynn Shrestha, RN RN Priscilla Main MD MD ma2 Diana Coats RN RN [email or web address] Ashley Ayoub RN RN kd3 Tanna Jiménez RN RN ww Smith, Shana RN RN ss7 Corrections: (The following items were deleted from the chart) 14:43 14:38 Dr. Robles ma2 ma2 14:43 14:43 Dr. Franco Amin ma2 ma2 14:43 14:43 Dr. Franco Amin ma2 ma2 17:10 14:[address] Amin ma2 ww
[2021-08-10] MEDS ORDERED: dexAMETHasone 4 MG/ML VIAL ONE (14:40)
[2021-08-10 15:33] LABS: Urine Blood 3+ (Negative); Urine Glucose Negative (Negative); Urine Protein 1+ (Negative); Urine pH 5.5 (5.0-7.0)
[2021-08-10 18:55] VITALS: BP 160/90; TEMP 98; O2SAT 99
== END 2021-08-10 17:10 | disposition short-term general hospital (02) ==
LOC: ER 10:13
DX: M48.54XA Collapsed vertebra, not elsewhere classified, thoracic region, initial encounter for fracture (principal); G95.20 Unspecified cord compression; I10 Essential (primary) hypertension; Z85.46 Personal history of malignant neoplasm of prostate; Z20.822 Contact with and (suspected) exposure to COVID-19
CPT/HCPCS: 85025; 80048; 36415; 80076; 81003; 83690; 74177; U0003; Q9967; J1100; J7030; 96361; 96374; 99285

== ENCOUNTER 2021-09-13 13:13 | Day surgery (SDC) | payer OTHER ==
[2021-09-10 14:28] LABS: Absolute Lymphocytes (CBC) 0.6 K/uL (0.7-4.9); Hematocrit 37.4 % (39.6-49.0); Lymphocytes % 14.8 % (15.3-44.8); MPV 7.9 fL (7.6-11.3); RBC Red Blood Cell Count 4.26 M/uL (4.33-5.43)
[2021-09-10 14:30] LABS: Protime INR 1.28
--- NOTE | 2021-09-10 14:31 | RAD REPORT ---
EXAM DESCRIPTION: RAD - Chest Pa And Lat (2 Views) - 09/10/2021 2:18 pm CLINICAL HISTORY: pre procedure screening, pending bladder surgery COMPARISON: Two view chest 04/29/2020 TECHNIQUE: Frontal and lateral views of the chest were obtained. FINDINGS: The lungs are clear of mass or infiltrate. Interstitial pattern matches comparison. No me diastinal or hilar mass or lymphadenopathy seen. Heart size is normal and central vasculature is with in normal limits. No pleural effusion or pneumothorax seen. Small hiatal hernia is evident. No acute bony finding noted. Prominent right shoulder joint degenerative change present only partially imaged . No aortic abnormality. IMPRESSION: No acute cardiopulmonary process. No significant change from comparison study.
[2021-09-10 14:40] LABS: Potassium 4.5 mmol/L (3.5-5.1)
[2021-09-13] MEDS ORDERED: Ringers Lactate 1,000 ML IV ONE (13:38)
[2021-09-13] MEDS ORDERED: FENTANYL CITR 100 MCG/2 ML ONE ×2 (14:55→16:54)
[2021-09-13] MEDS ORDERED: propofoL 200 MG/20 ML VIAL IV ONE (14:55)
[2021-09-13] MEDS ORDERED: MIDAZOLAM HCL 2 MG/2 ML INJ ONE (14:56)
[2021-09-13] MEDS: Gentamicin Inj 160 MG in NA CHLORIDE 0.9% 100 ML IV SCH ×3 (15:00→15:20)
[2021-09-13] MEDS: AMPICILLIN SODIUM 2 GM in NA CHLORIDE 0.9% 100 ML IVPB SCH ×3 (15:05→15:22)
[2021-09-13] MEDS ORDERED: OPIUM/BELLADONNA SUPPOS (30-16.2 MG) PR ONE ×2 (15:19→16:37)
[2021-09-13] MEDS ORDERED: CODEINE 30MG/APAP 300MG TAB PO PRN (15:19)
[2021-09-13 16:45] VITALS: O2SAT 100
[2021-09-13 17:43] VITALS: BP 142/86; TEMP 96.5
--- NOTE | 2021-09-14 03:20 | OP ---
Surgeon: SANDY DINERO Preoperative Diagnosis: 1.Bladder tumor. 2.Cytology suspicious for urothelial carcinoma. 3.History of metastatic prostate cancer, now castrate resistant. Postoperative Diagnoses: 1.Bladder tumor. 2.Cytology suspicious for urothelial carcinoma. 3.History of metastatic prostate cancer, now castrate resistant. Principal Procedure: 1.Cystoscopy. 2.Transurethral resection of a bladder tumor. Indication For Procedure: Mr. Benjamin is a -rzhh-jrb gentleman with hypertension and ne wly diagnosed chronic kidney disease with an EGFR of 36, who presented in followup of acute urinary r etention with ongoing obstructive lower urinary symptoms secondary to prostate cancer with a PSA grea ter than 100. He had a necrotic mass emanating from the base laterally of his prostate at the bladde r neck previously that was suspicious for high-grade urothelial carcinoma on cytology. He underwent TURBT on 05/05/2020, revealing adenocarcinoma of the prostate. Subsequently, anatomic imaging reveal ed metastases to the intrapelvic and intraabdominal lymph nodes, as well as multiple bone sites inclu ding the right aspect of the lower thoracic spine at multiple levels, as well as the posterior right seventh rib near the costovertebral junction, and the left ischium as well as the right pubic symphys is. He had mild bilateral hydronephrosis, though there was preservation of what resolved to normal r enal function after a catheter was placed. Initially, he was started on androgen deprivation therapy and his PSA did respond. However, by June of 2021, his PSA began to increase despite use of andr ogen deprivation therapy consistent with development of castrate resistance. Repeat CT scan was then performed to 08/10/2021, and did reveal the presence of the prostate cancer in different vertebral r egions including the T9 vertebral body with wedge compression deformity that was symptomatic. They a dditionally found a 3.3 cm lobulated mass in the right side of the bladder. He had the spinous condi tion managed by Neurosurgery, and presents today for evaluation of the bladder tumor. Initially, my impression was this was likely prostate cancer in origin, but given the cytology that returned suspic ious for high-grade urothelial carcinoma, we agreed to proceed with definitive operative evaluation. Procedure In Detail: The patient was consented in the preoperative holding area before being transfe rred to the operative suite where general anesthesia was induced. He was given ampicillin 2 g and ge ntamicin 160 mg IV antimicrobial prophylaxis. Pneumo boots were provided for DVT prophylaxis. He wa s placed in the lithotomy position, padded and secured to the table appropriately. His genitalia wer e prepped using Hibiclens and draped in standard fashion. The case was begun using urethral sounds t o dilate the meatus and fossa navicularis to 28-Jordanian. I then passed the 26-Jordanian resectoscope via the urethra and into his bladder with ease. I visualized the bladder, and while the bladder was mod erately trabeculated throughout and there was this large lobulated mass emanating from the right post erolateral surface of the bladder neck, there was irregularity of the mucosa into the trigone and pos terior surface of the bladder. Careful survey of the entirety of the posterior area of the bladder w as unrevealing for the ureteral orifices. Despite multiple efforts at searching the area prior to a planned resection, I was unable to visualize the ureteral orifices. As a result, I then began resect ion of the bulbous tumor projecting into his bladder and whittled down the tumor, resecting in an upw amanda angle from the inferior junction at the base of the prostate and bladder neck in order to avoid r esecting posteriorly in the region of the fugitive ureteral orifices. After an extensive period of r esection, I was able to clear the tumor from within his bladder, and I continued to search for ureter al orifices, but I was unable to visualize them. Only the right side of the bladder neck or perhaps the trigone had any resection involved. Pinpoint fulguration of any bleeding vessels was performed t o avoid extensive fulguration that might obstruct the ureteral orifice in case it was resected in the process of removing this tumor. All chips from this tumor were Ellik evacuated from his bladder and were sent for pathologic analysis. In the end, the area was hemostatic, and I then left his bladder full before passing an 18-Jordanian coude tip catheter into his bladder with ease. I placed approximat indigo 25 cc of sterile water in the balloon, and the catheter was then connected to a floor bag. The lisa pearl was then taken out of the lithotomy position, awakened from general anesthesia, transferred to a stretcher, and then transferred to the recovery room in good condition. Complications: None immediately recognized, though I was unable to visualize the ureteral orifices a nd the potential for resection of the right ureteral orifice does exist. Discharge Disposition: The patient will be discharged with the urethral Larkin catheter in place and we will remove it and give him a voiding trial on . I discharged him with a prescription for Bactrim Double Strength tablets for 3 days as well as some Tylenol No. 3. We will also arrange a re nal ultrasound to be done within the next 3 to 5 days, and if new hydronephrosis is noted, particular ly on the right, we will arrange for percutaneous nephrostomy tube with nephroureteral stent placemen t via Interventional Radiology accordingly. ROSALIND/CHUCK Voice ID: [id number] Report ID: [id number]
== END 2021-09-13 17:52 | disposition home or self-care (01) ==
LOC: OR 13:13
PROVIDERS: ATTEND Urology
PROC: 0TBB8ZX Excision of Bladder, Via Natural or Artificial Opening Endoscopic, Diagnostic (ICD-10-PCS; principal; 2021-09-13 14:00)
DX: C61 Malignant neoplasm of prostate (principal); C79.51 Secondary malignant neoplasm of bone; Z20.822 Contact with and (suspected) exposure to COVID-19
CPT/HCPCS: 52235; 93005; 87088; 85025; 87086; 80048; 36415; 85610; 88307; 71046; U0003; J2704; J1580; J2250; J3010 ×2; J7120; J0290; 88305

== ENCOUNTER 2021-09-28 23:10 | Observation (INO) | payer OTHER ==
--- OUTSIDE RECORDS SUMMARY | 2021-09-28 23:13 | XMS REPORT | Continuity of Care Document ---
:1940 Author Organization [facility] t Address [address] [place] [address] Care Team Providers Name Role Phone Tylor Storey Attending Clinician Unavailable JARRELL JANSEN Attending Clinician Unavailable HEAVEN Attending Clinician Unavailable PASHA BRADLEY Admitting Clinician Unavailable Payers Payer Name Policy Type Policy Number Effective Date Expiration Date S tam MEDICARE A B [id number] [employer] MEDICARE HMO [id number] 2020 POS PPO 00:00:00 Problems This patient has no known problems. Allergies, Adverse Reactions, Alerts Allergy Allergy Status Severity Reaction(s) Onset Inactive Treating Comm ents Source Name Type Date Date Clinician NO KNOWN Allergy Active [facility] Medications This patient has no known medications. Vital Signs Vital Name Observation Time Observation Value Comments Source HEIGHT 2021-08-11 09:00:00 180.3 cm WEIGHT 2021-08-10 19:20:00 71.668 kg HEIGHT 2021-08-11 09:00:00 180.3 cm WEIGHT 2021-08-10 19:20:00 71.668 kg Procedures This patient has no known procedures. Encounters Start End Encounter Admission Attending Care Care Encounter Source Date/Time Date/Time Type Type Clinicians Facility Department ID 2021-07-14 [id number] 13:02:23 [id number] Farhana Helena mendoza [facility] ent Clinics 2021-07-14 Outpatient [facility] 12[facility]49:20 [id number] [facility] 2021-07-14 Outpatient [facility] [id number] [facility] 12:35:50 [id number] [facility] 2021-07-14 [address] 12:17:36 [id number] [facility] 2021-07-[address] [facility] 12:10:59 [id number] [facility] 2021-09-16 2021-09-16 ambulatory [facility] [id number] [facility] 2021-08-26 2021-08-26 Outpatient [facility] [id number] [facility] 11:24:30 11:24:30 2021-08-25 2021-08-25 ambulatory [facility] [id number] [facility] 2021-08-16 2021-08-16 ambulatory [facility] [id number] [facility] 2021-08-10 2021-08-13 [facility] [id number] [facility] 18:19:00 13:17:00 MATIASRolan henry 2020-11-11 2020-11-11 Outpatient [facility] [id number] [facility] 2020-11-06 2020-11-06 Outpatient [facility] [id number] [facility] 2020-10-15 2020-10-15 Outpatient [facility] [id number] [facility] 2020-10-14 2020-10-14 Outpatient [facility] [id number] [facility] 2020-09-24 2020-09-24 Outpatient [facility] [id number] [facility] 2020-08-21 2020-08-21 Outpatient [facility] [id number] [facility] 2020-08-20 2020-08-20 Outpatient [facility] [id number] [facility] 2020-06-18 2020-06-18 Outpatient [facility] [id number] [facility] 2020-06-15 2020-06-15 Outpatient [facility] [id number] [facility] 2020-06-10 2020-06-10 Outpatient [facility] [id number] [facility] 2020-05-26 2020-05-26 Outpatient [facility] [id number] [facility] 2020-05-25 2020-05-25 Outpatient [facility] [id number] [facility] Results Test Description Test Time Test Comments Results Result [facility] e Comments CYTOLOGY 2021-08-18 Medical Cytology Report 10:42:57 Case: [id number] Authorizing Provider: Anabela Bradley, Collected: 08/11/2021 01:33 AM Ordering Location: [address] Received: 08/11/2021 09:59 AM Service Pathologist: Eden Villareal MD Specimen: Urine, Voided URINE, VOIDED: - HIGHLY SUSPICIOUS FOR MALIGNANCY - SEE COMMENT Signing Pathologist Direct Phone Line: [phone] y signed by Eden Villareal MD on 08/18/2021 at 10:42 AMPreliminary result electronically signed by Eden Villareal MD on 08/13/2021 at 12:38 PMThe specimen is composed of many atypical cells with large hyperchromatic nuclei. There is significant nuclear degeneration present. The features are highly suspicious for malignancy and urothelial origin is favored. However, given the patient's known history of metastatic prostate cancer immunohistochemical stains were performed. GATA3 is positive in a few background cell while PSA is negative. NKX3.1 was attempted at [facility] but the tissue of interest present on the original cell block are no longer present on this stain. Correlation with clinical and/or radiologic findings is recommended with consideration to tissue evaluation of the mass.[id number], [id number], 22604 X 2History of prostate cancer with metastasis to lung, hypertension who [facility] with back painURINE, VOIDEDReceived 60 ml yellow urine, prepared 4 cytospins Performed. SatisfactoryThe interpretation of this case included the use of immunohistochemistry or special stains.Control Slides Examined: In-house known positive controls were evaluated along with the test tissue. These control slides run alongside of the patients sample show appropriate staining. Internal positive and negative controls when available are evaluated Immunohistochemistry technical testing was performed at [facility] (GATA3, PSA), Pathology Laboratory where it was developed and its performance characteristics were determined. It has not been cleared or approved by the U.S. Food and Drug Administration. The FDA has determined that such clearance or approval is not necessary. The test is used for clinical purposes. It should not be regarded as investigational or for research. This laboratory is certified under the Clinical Laboratory Improvement Amendments of 1988 (CLIA-88) as qualified to perform high complexity clinical laboratory testing.Immunohistochemic al stain for NKX3.1 was performed at [facility] for technical component only (reference #[id number], [id number])[facility], Department of Pathology, [address] [place], [place] [address], [facility], [address] [place] [address], [facility], [facility], [address] [place] [address], BASIC METABOLIC PANEL 2021-08-13 06:04:41 Test Item Value Reference Range Interpretation Comme nts SODIUM (BEAKER) (test code 134 meq/L 136-145 L = 381) POTASSIUM (BEAKER) (test 4.3 meq/L 3.5-5.1 code = 379) CHLORIDE (BEAKER) (test 103 meq/L 98-107 code = 382) CO2 (BEAKER) (test code = 24 meq/L 22-29 355) BLOOD UREA NITROGEN 17 mg/dL 7-21 (BEAKER) (test code = 354) CREATININE (BEAKER) (test 0.91 mg/dL 0.57-1.25 code = 358) GLUCOSE RANDOM (BEAKER) 137 mg/dL 70-105 H (test code = 652) CALCIUM (BEAKER) (test code 10.1 mg/dL 8.4-10.2 = 697) EGFR (BEAKER) (test code = 97 mL/min/1.73 sq m ESTIMATED GFR IS NOT 1092) ACCURATE CRE ATININE CLEARANCE IN DC EDICTING GLOMERULAR FILT RATION RATE. ESTIMATED GFR IS NOT APPLICABLE FOR DIALYSIS PATIENTS. Wood Miller ID - PIAYA LCBC W/PLT COUNT & AUTO [id number] 05:17:43 Test Item Value Reference Range Interpretation Comments WHITE BLOOD CELL COUNT (BEAKER) 3.7 K/ L 3.5-10.5 (test code = 775) RED BLOOD CELL COUNT (BEAKER) 4.78 M/ L 4.63-6.08 (test code = 761) HEMOGLOBIN (BEAKER) (test code = 13.7 GM/DL 13.7-17.5 410) HEMATOCRIT (BEAKER) (test code = 40.2 % 40.1-51.0 411) MEAN CORPUSCULAR VOLUME (BEAKER) 84.1 fL 79.0-92.2 (test code = 753) MEAN CORPUSCULAR HEMOGLOBIN 28.7 pg 25.7-32.2 (BEAKER) (test code = 751) MEAN CORPUSCULAR HEMOGLOBIN CONC 34.1 GM/DL 32.3-36.5 (BEAKER) (test code = 752) RED CELL DISTRIBUTION WIDTH 14.2 % 11.6-14.4 (BEAKER) (test code = 412) PLATELET COUNT (BEAKER) (test 165 K/CU MM 150-450 code = 756) MEAN PLATELET VOLUME (BEAKER) 12.0 fL 9.4-12.4 (test code = 754) NUCLEATED RED BLOOD CELLS 0 /100 WBC 0-0 (BEAKER) (test code = 413) NEUTROPHILS RELATIVE PERCENT 79 % (BEAKER) (test code = 429) LYMPHOCYTES RELATIVE PERCENT 16 % (BEAKER) (test code = 430) MONOCYTES RELATIVE PERCENT 4 % (BEAKER) (test code = 431) EOSINOPHILS RELATIVE PERCENT 0 % (BEAKER) (test code = 432) BASOPHILS RELATIVE PERCENT 0 % (BEAKER) (test code = 437) NEUTROPHILS ABSOLUTE COUNT 2.94 K/ L 1.78-5.38 (BEAKER) (test code = 670) LYMPHOCYTES ABSOLUTE COUNT 0.59 K/ L 1.32-3.57 L (BEAKER) (test code = 414) MONOCYTES ABSOLUTE COUNT (BEAKER) 0.13 K/ L 0.30-0.82 L (test code = 415) EOSINOPHILS ABSOLUTE COUNT 0.00 K/ L 0.04-0.54 L (BEAKER) (test code = 416) BASOPHILS ABSOLUTE COUNT (BEAKER) 0.00 K/ L 0.01-0.08 L (test code = 417) IMMATURE GRANULOCYTES-RELATIVE 1 % 0-1 PERCENT (BEAKER) (test code = 2801) CALCIUM, [id number] 05:15:18 Test Item Value Reference Range Interpretation Comments CALCIUM IONIZED (BEAKER) (test 1.27 mmol/L 1.12-1.27 code = 698) PH, BLOOD (BEAKER) (test code = 7.43 1810) MR, SPINE, CERVICAL, [id number] 19:01:00Unlisted Reason for Exam - Click Yes and Enter Reason Below->YesUnlisted Reason for Exam->Concern for bony metastasesDeos the patient have an implanted electronic device?->No [facility] 1940 Sex: MFINAL REPORT MR, SPINE, CERVICAL, WITH \T\ WITHOUT CONTRAST INDICATI ON: Unlisted Reason for ExamConcern for bony metastases TECHNIQUE: Multiplanar, multisequence MR imaging of the cervical spine was performed with and without intravenous contrast. COMPARISON: None. FINDINGS: Alignment of the cervical spine is within normal limits. Vertebral body height is maintained.Mild multilevel disc space height loss, most conspicuous at C4-D0Roubewimg osseous metastases at everycervical level and within the visualized sternum and calvarium.Cervical cord is normal in signal intensityNo acute findings within the paraspinal soft tissues. Findings by level:C2/C3: Mild posterior disc osteophyte. Ligamentum flavum thickening. Bilateral facet arthropathy and hypertrophy. Moderateversus severe left foraminal stenosis. No significant spinal canal narrowing.C3/C4: Broad-based posterior disc osteophyte, which effaces the ventral CSF space. Ligamentum flavum thickening. Bilateralfacet arthropathy and hypertrophy. No significant spinal canal narrowing. Severe right foraminal stenosis.C4/C5: Broad-based posterior disc osteophyte, which effaces the ventral CSF space. Ligamentum flavum thickening. Bilateral facet arthropathy and hypertrophy. No significant spinal canal narrowing. Severe bilateral foraminal stenosis.C5/C6: Broad-based posterior disc osteophyte, which effaces the ventral CSF space. Ligamentum flavum thickening. Bilateral facet arthropathy and hypertrophy. No significant spinal canal narrowing. Severe bilateral foraminal stenosis.C6/C7: Mild disc osteophyte. Ligamentum flavum thickening. Bilateral facet arthropathy and hypertrophy. No significant spinal canal narrowing. Severe bilateral foraminal stenosis.C7/T1: Posterior disc osteophyte. Ligamentum flavum thickening. Bilateral facet arthropathy and hypertrophy. Moderate spinal canal narrowing. No significant foraminal stenosis. IMPRESSION: Enhancing osseous metastases at every cervical level and within the visualized sternum and calvarium. Multilevel facet degeneration with moderate versus severe left-sided foraminal stenosis at C2-C3, severe right foraminal stenosis at C3-C4 and severe bilateral foraminal stenosis at C4-C5, C5-C6 and C6-C7. Signed: Wendy Blounteport Verified Date/Time: 08/12/2021 19:01:02 C METABOLIC [id number] 17:52:30 Test Item Value Reference Range Interpretation Comments SODIUM (BEAKER) 136 meq/L 136-145 (test code = 381) POTASSIUM (BEAKER) 3.9 meq/L 3.5-5.1 (test code = 379) CHLORIDE (BEAKER) 103 meq/L 98-107 (test code = 382) CO2 (BEAKER) (test 26 meq/L 22-29 code = 355) BLOOD UREA NITROGEN 15 mg/dL 7-21 (BEAKER) (test code = 354) CREATININE (BEAKER) 0.98 mg/dL 0.57-1.25 (test code = 358) GLUCOSE RANDOM 145 mg/dL 70-105 H (BEAKER) (test code = 652) CALCIUM (BEAKER) 10.1 mg/dL 8.4-10.2 (test code = 697) EGFR (BEAKER) (test 89 mL/min/1.73 ESTIMA LUIS GFR IS code = 1092) sq m NOT ACCURATE CREATININE CLEARANCE IN PREDICTING GLOMERULAR FILTRATION RATE . ESTIMATED GFR I S NOT APPLICABLE FOR DIALYSIS PATIEN TS. Wood Miller ID - BSCALCIUM, [id number] 17:33:50 Test Item Value Reference Range Interpretation Comments CALCIUM IONIZED (BEAKER) (test 1.23 mmol/L 1.12-1.27 code = 698) PH, BLOOD (BEAKER) (test code = 7.41 1810) VITAMIN D, [id number] 05:32:36 Test Item Value Reference Range Interpretation Comments VITAMIN D 25-OH (BEAKER) (test 26.3 ng/mL 6.6-49.9 code = 2764) Effective 03/29/2017: Reference Range ChangeNew: 6.6-49.9 ng/mL Previous: 13.0-47.8 ng/mLRecommended Vitamin D Target Range: 30.0-40.0 ng/mLOperator ID - BSPTH, [id number] 04:30:47 Test Item Value Reference Range Interpretation Comments PARATHYROID HORMONE INTACT 20.2 pg/mL 8.5-72.5 (BEAKER) (test code = 577) Wood Miller ID - BECKA MBASIC METABOLIC [id number] 04:29:06 Test Item Value Reference Range Interpretation Comments SODIUM (BEAKER) 135 meq/L 136-145 L (test code = 381) POTASSIUM (BEAKER) 3.8 meq/L 3.5-5.1 (test code = 379) CHLORIDE (BEAKER) 104 meq/L 98-107 (test code = 382) CO2 (BEAKER) (test 23 meq/L 22-29 code = 355) BLOOD UREA NITROGEN 16 mg/dL 7-21 (BEAKER) (test code = 354) CREATININE (BEAKER) 0.92 mg/dL 0.57-1.25 (test code = 358) GLUCOSE RANDOM 102 mg/dL 70-105 (BEAKER) (test code = 652) CALCIUM (BEAKER) 10.0 mg/dL 8.4-10.2 (test code = 697) EGFR (BEAKER) (test 96 mL/min/1.73 ESTIMA LUIS GFR IS code = 1092) sq m NOT ACCURATE CREATININE CLEARANCE IN PREDICTING GLOMERULAR FILTRATION RATE . ESTIMATED GFR I S NOT APPLICABLE FOR DIALYSIS PATIEN TS. Wood Miller ID - BSHEPATIC FUNCTION [id number] 04:29:06 Test Item Value Reference Range Interpretation Comments TOTAL PROTEIN (BEAKER) (test code = 7.3 gm/dL 6.0-8.3 770) ALBUMIN (BEAKER) (test code = 1145) 3.9 g/dL 3.5-5.0 BILIRUBIN TOTAL (BEAKER) (test code 0.7 mg/dL 0.2-1.2 = 377) BILIRUBIN DIRECT (BEAKER) (test 0.3 mg/dL 0.1-0.5 code = 706) ALKALINE PHOSPHATASE (BEAKER) (test 101 U/L 40-150 code = 346) AST (SGOT) (BEAKER) (test code = 57 U/L 5-34 H 353) ALT (SGPT) (BEAKER) (test code = 13 U/L 6-55 347) Wood Miller ID - BSCBC W/PLT COUNT & AUTO [id number] 04:16:02 Test Item Value Reference Range Interpretation Comments WHITE BLOOD CELL COUNT (BEAKER) 5.0 K/ L 3.5-10.5 (test code = 775) RED BLOOD CELL COUNT (BEAKER) 5.12 M/ L 4.63-6.08 (test code = 761) HEMOGLOBIN (BEAKER) (test code = 14.5 GM/DL 13.7-17.5 410) HEMATOCRIT (BEAKER) (test code = 42.0 % 40.1-51.0 411) MEAN CORPUSCULAR VOLUME (BEAKER) 82.0 fL 79.0-92.2 (test code = 753) MEAN CORPUSCULAR HEMOGLOBIN 28.3 pg 25.7-32.2 (BEAKER) (test code = 751) MEAN CORPUSCULAR HEMOGLOBIN CONC 34.5 GM/DL 32.3-36.5 (BEAKER) (test code = 752) RED CELL DISTRIBUTION WIDTH 14.0 % 11.6-14.4 (BEAKER) (test code = 412) PLATELET COUNT (BEAKER) (test 161 K/CU MM 150-450 code = 756) MEAN PLATELET VOLUME (BEAKER) 11.8 fL 9.4-12.4 (test code = 754) NUCLEATED RED BLOOD CELLS 0 /100 WBC 0-0 (BEAKER) (test code = 413) NEUTROPHILS RELATIVE PERCENT 66 % (BEAKER) (test code = 429) LYMPHOCYTES RELATIVE PERCENT 25 % (BEAKER) (test code = 430) MONOCYTES RELATIVE PERCENT 8 % (BEAKER) (test code = 431) EOSINOPHILS RELATIVE PERCENT 0 % (BEAKER) (test code = 432) BASOPHILS RELATIVE PERCENT 0 % (BEAKER) (test code = 437) NEUTROPHILS ABSOLUTE COUNT 3.27 K/ L 1.78-5.38 (BEAKER) (test code = 670) LYMPHOCYTES ABSOLUTE COUNT 1.26 K/ L 1.32-3.57 L (BEAKER) (test code = 414) MONOCYTES ABSOLUTE COUNT (BEAKER) 0.41 K/ L 0.30-0.82 (test code = 415) EOSINOPHILS ABSOLUTE COUNT 0.00 K/ L 0.04-0.54 L (BEAKER) (test code = 416) BASOPHILS ABSOLUTE COUNT (BEAKER) 0.01 K/ L 0.01-0.08 (test code = 417) IMMATURE GRANULOCYTES-RELATIVE 1 % 0-1 PERCENT (BEAKER) (test code = 2801) CALCIUM, [id number] 04:08:37 Test Item Value Reference Range Interpretation Comments CALCIUM IONIZED (BEAKER) (test 1.23 mmol/L 1.12-1.27 code = 698) PH, BLOOD (BEAKER) (test code = 7.43 1810) BASIC METABOLIC [id number] 19:23:38 Test Item Value Reference Range Interpretation Comments SODIUM (BEAKER) 135 meq/L 136-145 L (test code = 381) POTASSIUM (BEAKER) 4.3 meq/L 3.5-5.1 (test code = 379) CHLORIDE (BEAKER) 104 meq/L 98-107 (test code = 382) CO2 (BEAKER) (test 23 meq/L 22-29 code = 355) BLOOD UREA NITROGEN 18 mg/dL 7-21 (BEAKER) (test code = 354) CREATININE (BEAKER) 1.06 mg/dL 0.57-1.25 (test code = 358) GLUCOSE RANDOM 112 mg/dL 70-105 H (BEAKER) (test code = 652) CALCIUM (BEAKER) 10.7 mg/dL 8.4-10.2 H (test code = 697) EGFR (BEAKER) (test 81 mL/min/1.73 ESTIMA LUIS GFR IS code = 1092) sq m NOT ACCURATE CREATININE CLEARANCE IN PREDICTING GLOMERULAR FILTRATION RATE . ESTIMATED GFR I S NOT APPLICABLE FOR DIALYSIS PATIEN TS. Wood Miller ID - BSCALCIUM, [id number] 19:02:08 Test Item Value Reference Range Interpretation Comments CALCIUM IONIZED (BEAKER) (test 1.30 mmol/L 1.12-1.27 H code = 698) PH, BLOOD (BEAKER) (test code = 7.41 1810) MR, SPINE, THORACIC, [id number] 19:01:00Unlisted Reason for Exam - Click Yes and Enter Reason Below->NoDeos the patient have an implantedelectronic device?->No[facility] : 1940 Sex: MFINAL REPORT MR, SPINE, LUMBAR, WITH \T\ WITHOUT CONTRAST, MR, SPINE, THORACIC, WITH \T\ WITHOUT CONTRAST INDICATION: Back pain or radiculopathy, cancer or infection suspected COMPARISON: None TECHNIQUE: Multiplanar, multisequence MR images of the thoracic and lumbar spine without contrast. FINDINGS: THORACIC SPINE: Alignment of the thoracic spine is within normal posada its. Vertebral body height is maintained. Osseous metastasis at every thoracic level. Pathologic fracture of T10 with 50% loss of vertebral body height anteriorly. There is anterior paravertebral disease, anterior and posterior epidural disease, which encases the thoracic cord with cord compression. Additionally, epidural disease extends to the T9-T10 and T10-T11 neural foramina bilaterally. Mild multilevel disc space height loss is present. No acute findings within the paraspinal soft tissues. LUMBAR SPINE: 5 nonrib-bearing lumbar-type vertebral bodies are present. Alignment of the lumbar spine is within normal limits. Vertebral body height is maintained. Osseous metastasis at every lumbar level. No consequent pathologic fracture. Multilevel disc space height loss is present, most conspicuous at L3-L4, L4-L5 and L5-S1 Conus terminates at L1. Cauda equina demonstrates normal appearance. No acute findings in the paraspinal soft tissues. Evaluation of the individual levels demonstrates: L1/L2: No significant canal or foraminal narrowing.L2/L3: No significant canal or foraminal narrowing.L3/L4: Broad-based disc bulge. Ligamentum flavum thickening. Bilateral facet arthropathy and hypertrophy. Severe canal stenosis and impingement of the cauda equina nerve roots. Severe right/moderateleft foraminal stenosis with impingement of the L3 nerve roots.L4/L5: Broad-based disc bulge. Ligamentum flavum thickening. Bilateral facet arthropathy and hypertrophy. Mild spinal canal narrowing. Severe bilateral foraminal stenosis with impingement of the exiting L4 nerve roots.L5/S1: Mild disc bulge. Ligamentum flavum thickening. Bilateral facet arthropathy and hypertrophy. Moderate right foraminal stenosis with impingement of the exiting right L5 nerve root. IMPRESSION:Cord compression. Pathologic fracture of T10 with 50% loss of vertebral body height anteriorly. There is anterior paravert ebral disease, anterior and posterior epidural disease, which encases the thoracic cord with cord compression Epidural disease extends to the T9-T10 and T10-T11 neural foramina bilaterally Multilevel degenerative changes of the lumbar spine, most prominent at L3-L4, where there is severe canal stenosis Signed: Wendy Blount MDReport Verified Date/Time: 08/11/2021 19:01:14 MR, SPINE, LUMBAR, [id number] 19:01:00Unlisted Reason for Exam - Click Yes and Enter Reason Below->NoDeos the patient have an implantedelectronic device?->No[facility] : 1940 Sex: MFINAL REPORT MR, SPINE, LUMBAR, WITH \T\ WITHOUT CONTRAST, MR, SPINE, THORACIC, WITH \T\ WITHOUT CONTRAST INDICATION: Back pain or radiculopathy, cancer or infection suspected COMPARISON: None TECHNIQUE: Multiplanar, multisequence MR images of the thoracic and lumbar spine without contrast. FINDINGS: THORACIC SPINE: Alignment of the thoracic spine is within normal posada its. Vertebral body height is maintained. Osseous metastasis at every thoracic level. Pathologic fracture of T10 with 50% loss of vertebral body height anteriorly. There is anterior paravertebral disease, anterior and posterior epidural disease, which encases the thoracic cord with cord compression. Additionally, epidural disease extends to the T9-T10 and T10-T11 neural foramina bilaterally. Mild multilevel disc space height loss is present. No acute findings within the paraspinal soft tissues. LUMBAR SPINE: 5 nonrib-bearing lumbar-type vertebral bodies are present. Alignment of the lumbar spine is within normal limits. Vertebral body height is maintained. Osseous metastasis at every lumbar level. No consequent pathologic fracture. Multilevel disc space height loss is present, most conspicuous at L3-L4, L4-L5 and L5-S1 Conus terminates at L1. Cauda equina demonstrates normal appearance. No acute findings in the paraspinal soft tissues. Evaluation of the individual levels demonstrates: L1/L2: No significant canal or foraminal narrowing.L2/L3: No significant canal or foraminal narrowing.L3/L4: Broad-based disc bulge. Ligamentum flavum thickening. Bilateral facet arthropathy and hypertrophy. Severe canal stenosis and impingement of the cauda equina nerve roots. Severe right/moderateleft foraminal stenosis with impingement of the L3 nerve roots.L4/L5: Broad-based disc bulge. Ligamentum flavum thickening. Bilateral facet arthropathy and hypertrophy. Mild spinal canal narrowing. Severe bilateral foraminal stenosis with impingement of the exiting L4 nerve roots.L5/S1: Mild disc bulge. Ligamentum flavum thickening. Bilateral facet arthropathy and hypertrophy. Moderate right foraminal stenosis with impingement of the exiting right L5 nerve root. IMPRESSION:Cord compression. Pathologic fracture of T10 with 50% loss of vertebral body height anteriorly. There is anterior paravert ebral disease, anterior and posterior epidural disease, which encases the thoracic cord with cord compression Epidural disease extends to the T9-T10 and T10-T11 neural foramina bilaterally Multilevel degenerative changes of the lumbar spine, most prominent at L3-L4, where there is severe canal stenosis Signed: Wendy Blount [facility] Verified Date/Time: 08/11/2021 19:01:14 -COV2/RT-PCR ([facility])2021-08-11 13:54:50 Test Item Value Reference Range Interpretation Comments SARS-COV2/RT-PCR (test Negative Not Detected, Negative, code = 2100113) See external report for linked test SARS-COV-2 PERFORMING LAB [facility] (test code = 8679843) Negative result for this test determines that SARS-CoV-2 RNA was not present in the specimen above the Limit of Detection (LOD). However, Negative results do not preclude SARS-CoV-2 infection and should not be used as the sole basis for treatment or patient management decisions. Negative results mustbe combined with clinical observations, patient history, and epidemiological information. A false negative result may occur if a specimen is improperly collected, transported or handled. A false negative result should be considered if patient's recent exposures or clinical presentation indicate that COVID-19 (SARS-CoV-2) is likely and diagnostic tests for other causes of illness are negative. Re-testing should be considered in cases of suspected false negatives.The limit of detection for this assay is 800 copies/mL.This SARS CoV-2 test is a real-time RT-PCR test intended for the qualitative detection of nucleic acid from SARS-CoV-2 in a nasopharyngeal swab specimen collected from individuals susp ected of COVID-19 by their healthcare provider.This test has not been Food and Drug Administration (FDA) cleared or approved. This is a modified version of an approved Emergency Use Authorization (EUA) and is in the process of review by the FDA. Once authorized by the FDA, the issued EUA will be effective until the declaration that circumstances exist justifying the authorization of the emergency use of in vitro diagnostic tests for detection and/or diagnosis of COVID-19 is terminated under Section 564(b)(2) of the Act or the EUA is revoked under Section 564(g) of the Act.Fact Sheet for Healthcare Providers:https://www.TRiQidel.com/sites/default/files/product/documents/Fact_Shee d_LU_Iwmhmulah_Rzbp_YIGJ-RhZ-9.pdfFact Sheet for Healthcare Patients:https://www.rumr: turn off the lights.com/sites/default/files/product/ documents/Jndx_Lftrt_Stbmppdw_Uqeo_URZW-HpU-9.pdfPerforming Laboratory:[facility] [address], [place] [address]L/S, RENAL, COMPLETE 2021-08-11 11:23:00Reason for exam:->Bladder mass. Rule out hydronephrosis. [facility] 1940 Sex: MFINAL REPORT TECHNIQUE: Grayscale ultrasound of the kidneys and blad amy. INDICATION: 80-year-old man with bladder mass. COMPARISON: None. FINDINGS: RIGHT KIDNEY: Rightkidney measures 10.2 x 6 x 5 cm with cortical thickness of 1.4 cm. No solid mass. No hydronephrosis.Renal artery and vein are patent. LEFT KIDNEY: Left kidney measures 11.5 x 6.5 x 4.1 cm with cortical thickness of 1.4 cm. No solid mass. 7.2 x 3.7 x 3.4 cm left renal cyst with thin internal septationextends into the renal sinus. No hydronephrosis. Renal artery and vein are patent. BLADDER: 2.6 x 2.8 x 2.7 cm mass within the bladder. IMPRESSION:No hydronephrosis. 7.2 cm left renal cyst extends into the renal sinus. 2.8 cm bladder mass. Signed: Douglas [place] MDReport Verified Date/Time: 08/11/2021 11:23:23 PT/[id number] 06:48:30 Test Item Value Reference Range Interpretation Comments PROTIME (BEAKER) (test 14.7 seconds 11.9-14.2 H code = 759) INR (BEAKER) (test 1.16 See_Comment [Automat ed code = 370) message] The sy stem which generated this result transmitted reference range : <=5.90. The reference range was not used to interpret this result as normal/abnormal . PARTIAL THROMBOPLASTIN 26.3 seconds 22.5-36.0 TIME (BEAKER) (test code = 760) RECOMMENDED COUMADIN/WARFARIN INR THERAPY RANGESSTANDARD DOSE: 2.0 - 3.0 Includes: PROPHYLAXIS forvenous thrombosis, systemic embolization; TREATMENT for venous thrombosis and/or pulmonary embolus.HIGH RISK: Target INR is 2.5-3.5 for patients with mechanical heart valves.COMPREHENSIVE METABOLIC [id number] 06:11:37 Test Item Value Reference Range Interpretation Comments TOTAL PROTEIN 7.2 gm/dL 6.0-8.3 (BEAKER) (test code = 770) ALBUMIN (BEAKER) 3.8 g/dL 3.5-5.0 (test code = 1145) ALKALINE PHOSPHATASE 98 U/L 40-150 (BEAKER) (test code = 346) BILIRUBIN TOTAL 0.6 mg/dL 0.2-1.2 (BEAKER) (test code = 377) SODIUM (BEAKER) (test 137 meq/L 136-145 code = 381) POTASSIUM (BEAKER) 4.4 meq/L 3.5-5.1 (test code = 379) CHLORIDE (BEAKER) 106 meq/L 98-107 (test code = 382) CO2 (BEAKER) (test 20 meq/L 22-29 L code = 355) BLOOD UREA NITROGEN 19 mg/dL 7-21 (BEAKER) (test code = 354) CREATININE (BEAKER) 1.03 mg/dL 0.57-1.25 (test code = 358) GLUCOSE RANDOM 106 mg/dL 70-105 H (BEAKER) (test code = 652) CALCIUM (BEAKER) 10.3 mg/dL 8.4-10.2 H (test code = 697) AST (SGOT) (BEAKER) 51 U/L 5-34 H (test code = 353) ALT (SGPT) (BEAKER) 12 U/L 6-55 (test code = 347) EGFR (BEAKER) (test 84 mL/min/1.73 ESTIMA LUIS GFR IS code = 1092) sq m NOT ACCURATE CREATININE CLEARANCE IN PREDICTING GLOMERULAR FILTRATION RATE . ESTIMATED GFR I S NOT APPLICABLE FOR DIALYSIS PATIEN TS. Wood Miller ID - JUSTYN WURINALYSIS W/ [id number] 02:01:14 Test Item Value Reference Range Interpretation Comments COLOR (BEAKER) (test code = 470) Yellow CLARITY (BEAKER) (test code = 469) Clear SPECIFIC GRAVITY UA (BEAKER) (test 1.027 1.001-1.035 code = 468) PH UA (BEAKER) (test code = 467) 5.5 5.0-8.0 PROTEIN UA (BEAKER) (test code = 10 mg/dL Negative A 464) GLUCOSE UA (BEAKER) (test code = Negative Negative 365) KETONES UA (BEAKER) (test code = 60 mg/dL Negative A 371) BILIRUBIN UA (BEAKER) (test code = Negative Negative 462) BLOOD UA (BEAKER) (test code = 461) Large Negative A NITRITE UA (BEAKER) (test code = Negative Negative 465) LEUKOCYTE ESTERASE UA (BEAKER) Moderate Negative A (test code = 466) UROBILINOGEN UA (BEAKER) (test code 0.2 mg/dL 0.2-1.0 = 463) RBC UA (BEAKER) (test code = 519) 41 /HPF WBC UA (BEAKER) (test code = 520) 41 /HPF BACTERIA (BEAKER) (test code = 517) None Seen MUCUS (BEAKER) (test code = 1574) Rare HYALINE CASTS (BEAKER) (test code = 1 /LPF 514) CRYSTALS, URINE (BEAKER) (test code None Seen = 1521) SOURCE(BEAKER) (test code = 2795) Wood Miller ID - [auto]Wood Miller ID - techCBC W/PLT COUNT & AUTO DIFFERENTIAL 2021-08-10 23:35:48 Test Item Value Reference Range Interpretation Comments WHITE BLOOD CELL COUNT (BEAKER) 3.2 K/ L 3.5-10.5 L (test code = 775) RED BLOOD CELL COUNT (BEAKER) 5.33 M/ L 4.63-6.08 (test code = 761) HEMOGLOBIN (BEAKER) (test code = 15.1 GM/DL 13.7-17.5 410) HEMATOCRIT (BEAKER) (test code = 45.2 % 40.1-51.0 411) MEAN CORPUSCULAR VOLUME (BEAKER) 84.8 fL 79.0-92.2 (test code = 753) MEAN CORPUSCULAR HEMOGLOBIN 28.3 pg 25.7-32.2 (BEAKER) (test code = 751) MEAN CORPUSCULAR HEMOGLOBIN CONC 33.4 GM/DL 32.3-36.5 (BEAKER) (test code = 752) RED CELL DISTRIBUTION WIDTH 14.1 % 11.6-14.4 (BEAKER) (test code = 412) PLATELET COUNT (BEAKER) (test 173 K/CU MM 150-450 code = 756) MEAN PLATELET VOLUME (BEAKER) 11.6 fL 9.4-12.4 (test code = 754) NUCLEATED RED BLOOD CELLS 0 /100 WBC 0-0 (BEAKER) (test code = 413) NEUTROPHILS RELATIVE PERCENT 78 % (BEAKER) (test code = 429) LYMPHOCYTES RELATIVE PERCENT 17 % (BEAKER) (test code = 430) MONOCYTES RELATIVE PERCENT 4 % (BEAKER) (test code = 431) EOSINOPHILS RELATIVE PERCENT 0 % (BEAKER) (test code = 432) BASOPHILS RELATIVE PERCENT 0 % (BEAKER) (test code = 437) NEUTROPHILS ABSOLUTE COUNT 2.52 K/ L 1.78-5.38 (BEAKER) (test code = 670) LYMPHOCYTES ABSOLUTE COUNT 0.55 K/ L 1.32-3.57 L (BEAKER) (test code = 414) MONOCYTES ABSOLUTE COUNT (BEAKER) 0.12 K/ L 0.30-0.82 L (test code = 415) EOSINOPHILS ABSOLUTE COUNT 0.00 K/ L 0.04-0.54 L (BEAKER) (test code = 416) BASOPHILS ABSOLUTE COUNT (BEAKER) 0.01 K/ L 0.01-0.08 (test code = 417) IMMATURE GRANULOCYTES-RELATIVE 1 % 0-1 PERCENT (BEAKER) (test code = 7593)
[2021-09-29 01:09] LABS: Absolute Lymphocytes (CBC) 0.9 K/uL (0.7-4.9); Hematocrit 33.4 % (39.6-49.0); Lymphocytes % 20.1 % (15.3-44.8); MPV 8.1 fL (7.6-11.3); RBC Red Blood Cell Count 3.75 M/uL (4.33-5.43)
[2021-09-29 01:15] LABS: Potassium 3.9 mmol/L (3.5-5.1); Troponin High Sensitivity 53.4 pg/mL (<58.9)
[2021-09-29 01:32] LABS: Anisocytosis 1+; Blood Morphology Comment NOTED (NOT SEEN); Platelet Estimate ADEQ
[2021-09-29 01:33] LABS: Macrocytosis 1+; Ovalocytes 1+; Poikilocytosis 1+; Polychromasia SLIGHT
--- NOTE | 2021-09-29 02:32 | EDPHYS ---
Physician Documentation [facility] Name: Kade Benjamin Age: 80 yrs Sex: Male : 1940 Arrival Date: 09/28/2021 Time: 23:16 Bed 7 Private MD: ED Physician Declan Pope HPI: 09/29 02:27 This 80 yrs old Black Male presents to ER via Ambulatory with complaints of Chest Pain mh7 > 30 y/o. 02:27 The patient or guardian reports chest pain that is located primarily in the anterior mh7 chest wall, left. Onset: today. The pain does not radiate. Associated signs and symptoms: Pertinent negatives: abdominal pain, cough, diaphoresis, dizziness, headache, lower extremity pain, lower extremity swelling, lightheadedness, nausea, near syncope, palpitations, recent travel, shortness of breath, syncope, vomiting. The chest pain is described as a pressure, sharp. Duration: The patient or guardian reports multiple episodes, that are intermittent, that wax and wane, with no pattern. Modifying factors: The symptoms are alleviated by nothing. the symptoms are aggravated by nothing. Severity of pain: At its worst the pain was moderate today, in the emergency department the pain has improved moderately. Historical: - Allergies: 00:37 No Known Allergies; bb - PMHx: 00:37 Hypertension; Prostate Cancer; bb - Immunization history:: Moderna x 2. - Social history:: Smoking status: Patient denies any tobacco usage or history of. ROS: 02:27 Constitutional: Negative for fever, chills, and weight loss, Eyes: Negative for injury, mh7 pain, redness, and discharge, ENT: Negative for injury, pain, and discharge, Neck: Negative for injury, pain, and swelling, Respiratory: Negative for shortness of breath, cough, wheezing, and pleuritic chest pain, Abdomen/GI: Negative for abdominal pain, nausea, vomiting, diarrhea, and constipation, Back: Negative for injury and pain, : Negative for injury, bleeding, discharge, and swelling, MS/Extremity: Negative for injury and deformity, Skin: Negative for injury, rash, and discoloration, Neuro: Negative for headache, weakness, numbness, tingling, and seizure, Psych: Negative for depression, anxiety, suicide ideation, homicidal ideation, and hallucinations, Allergy/Immunology: Negative for hives, rash, and allergies, Endocrine: Negative for neck swelling, polydipsia, polyuria, polyphagia, and marked weight changes, Hematologic/Lymphatic: Negative for swollen nodes, abnormal bleeding, and unusual bruising. Exam: 02:27 Constitutional: This is a well developed, well nourished patient who is awake, alert, mh7 and in no acute distress. Head/Face: Normocephalic, atraumatic. Eyes: Pupils equal round and reactive to light, extra-ocular motions intact. Lids and lashes normal. Conjunctiva and sclera are non-icteric and not injected. Cornea within normal limits. Periorbital areas with no swelling, redness, or edema. Neck: Trachea midline, no thyromegaly or masses palpated, and no cervical lymphadenopathy. Supple, full range of motion without nuchal rigidity, or vertebral point tenderness. No Meningismus. Chest/axilla: Normal chest wall appearance and motion. Nontender with no deformity. No lesions are appreciated. Cardiovascular: Regular rate and rhythm with a normal S1 and S2. No gallops, murmurs, or rubs. Normal PMI, no JVD. No pulse deficits. Respiratory: Lungs have equal breath sounds bilaterally, clear to auscultation and percussion. No rales, rhonchi or wheezes noted. No increased work of breathing, no retractions or nasal flaring. Abdomen/GI: Soft, non-tender, with normal bowel sounds. No distension or tympany. No guarding or rebound. No evidence of tenderness throughout. Back: No spinal tenderness. No costovertebral tenderness. Full range of motion. Skin: Warm, dry with normal turgor. Normal color with no rashes, no lesions, and no evidence of cellulitis. MS/ Extremity: Pulses equal, no cyanosis. Neurovascular intact. Full, normal range of motion. Neuro: Awake and alert, GCS 15, oriented to person, place, time, and situation. Cranial nerves II-XII grossly intact. Motor strength 5/5 in all extremities. Sensory grossly intact. Cerebellar exam normal. Normal gait. Psych: Awake, alert, with orientation to person, place and time. Behavior, mood, and affect are within normal limits. Vital Signs: 00:35 BP 108 / 84; Pulse 96; Resp 16 S; Temp 98.2(O); Pulse Ox 98% on R/A; Weight 65.77 kg bb (R); Height 5 ft. 11 in. (180.34 cm) (R); Pain 0/10; 01:57 BP 132 / 87; Pulse 86; Resp 15; Temp 98.3; Pulse Ox 100% on R/A; wm 02:09 BP 131 / 87; Pulse 80; Resp 22; Pulse Ox 100% on R/A; bb 02:44 BP 138 / 90; Pulse 81; Resp 18; Pulse Ox 100% on R/A; tw5 03:20 BP 142 / 83; Pulse 83; Resp 23; Temp 97.6; Pulse Ox 100% on R/A; wm 00:35 Body Mass Index 20.22 (65.77 kg, 180.34 cm) bb MDM: 02:27 Differential diagnosis: abnormal EKG, acute myocardial infarction, acute pericarditis, mh7 anxiety, coronary artery disease chest wall pain, congestive heart failure costochondritis, esophagitis, gastritis, gastroesophageal reflux disease (GERD). HEART Score: History: Moderately Suspicious (1), ECG: Non specific repolarization disturbance / LBTB / PM (1), Age: > or = 65 years (2), Risk Factors: 1 or 2 risk factors (1), [Hypertension] Troponin: < or = 1 x Normal Limit (0), Total Score = 5. The patient was given aspirin in the Emergency Department. Data reviewed: vital signs, nurses notes, lab test result(s), cardiac enzymes, CBC, electrolytes, EKG, radiologic studies, plain films. Data interpreted: Pulse oximetry: on room air is 100 %. Interpretation: normal. Counseling: I had a detailed discussion with the patient and/or guardian regarding: the historical points, exam findings, and any diagnostic results supporting the discharge/admit diagnosis, lab results, radiology results, the need for further work-up and treatment in the hospital. Response to treatment: the patient's symptoms have mildly improved after treatment. 02:31 Patient medically screened. mh7 09/29 00:38 Order name: Basic Metabolic Panel; Complete Time: 01:51 09/29 00:38 Order name: CBC with Diff; Complete Time: 01:51 09/29 00:38 Order name: Troponin HS; Complete Time: 01:51 09/29 01:13 Order name: Manual Differential; Complete Time: 01:51 EDOK 09/29 03:31 Order name: COVID-19 SARS RT PCR (Document "Date of Onset" if Symptomatic) lp1 09/29 04:39 Order name: SARS-COV-2 RT PCR EDOK 09/29 00:38 Order name: XRAY Chest (1 view) 09/29 00:38 Order name: EKG; Complete Time: 00:38 09/29 05:45 Order name: Troponin High Sensitivity EDOK 09/29 05:45 Order name: Lipid Profile EDOK 09/29 12:39 Order name: Troponin High Sensitivity EDOK 09/29 00:38 Order name: Cardiac monitoring; Complete Time: 02:06 09/29 00:38 Order name: EKG - Nurse/Tech; Complete Time: 00:45 09/29 00:38 Order name: IV Saline Lock; Complete Time: 00:45 09/29 00:38 Order name: Labs collected and sent; Complete Time: 00:45 09/29 00:38 Order name: O2 Per Protocol; Complete Time: 02:06 09/29 00:38 Order name: O2 Sat Monitoring; Complete Time: 02:06 bb Administered Medications: 02:44 Drug: Aspirin Chewable Tablet 324 mg Route: PO; tw5 03:30 Follow up: Response: No adverse reaction tw5 02:44 Drug: morphine 2 mg Route: IVP; Site: left antecubital; tw5 03:30 Follow up: Response: No adverse reaction; Pain is decreased; RASS: Alert and Calm (0) tw5 02:44 Drug: Zofran (Ondansetron) 4 mg Route: IVP; Site: left antecubital; tw5 03:30 Follow up: Response: No adverse reaction tw5 Disposition Summary: 09/29/21 02:31 Hospitalization Ordered Hospitalization Status: Observation mh7 Provider: Kiran Lai Condition: Stable 7 Problem: new mh7 Symptoms: have improved mh7 Bed/Room Type: Standard [facility] Location: [facility] ER HOLD(09/29/21 03:40) mw Room Assignment: ERHOLD-(09/29/21 03:40) mw Diagnosis - Chest pain, unspecified 7 Forms: - Medication Reconciliation Form [facility] - SBAR form [facility] Signatures: Dispatcher [employer] Nilsa Valdes RN RN mw Ballard, Brenda, RN RN bb Holmes, Maurice, MD MD [facility] Conchis Jiménez tw5 Corrections: (The following items were deleted from the chart) 03:40 02:31 Telemetry/MedSurg (observation) [facility] 03:40 02:31 [facility]
--- NOTE | 2021-09-29 02:32 | ER ---
Nurse's Notes [facility] Name: Kade Benjamin Age: 80 yrs Sex: Male : 1940 Arrival Date: 09/28/2021 Time: 23:16 Bed 7 Private MD: Diagnosis: Chest pain, unspecified Presentation: 09/29 00:35 Chief complaint: Patient states: he had 2 episodes of chest pain tonight lasting a few bb minutes denies pain at this time. Coronavirus screen: At this time, the client does not indicate any symptoms associated with coronavirus-19. Ebola Screen: No symptoms or risks identified at this time. Initial Sepsis Screen: Does the patient meet any 2 criteria? No. Patient's initial sepsis screen is negative. Does the patient have a suspected source of infection? No. Patient's initial sepsis screen is negative. Risk Assessment: Do you want to hurt yourself or someone else? Patient reports no desire to harm self or others. Onset of symptoms was September 29, 2021. 00:35 Method Of Arrival: Ambulatory bb 00:35 Acuity: MARGE 3 bb Triage Assessment: 00:37 General: Appears in no apparent distress. slender, Behavior is calm, cooperative. Pain: bb Denies pain. Neuro: Level of Consciousness is awake, alert, obeys commands, Oriented to person, place, time, situation. Cardiovascular: Capillary refill < 3 seconds Patient's skin is warm and dry. Rhythm is sinus rhythm. Respiratory: Respiratory effort is even, unlabored, Respiratory pattern is regular. GI: No signs and/or symptoms were reported involving the gastrointestinal system. Musculoskeletal: Circulation, motion, and sensation intact. Historical: - Allergies: 00:37 No Known Allergies; bb - PMHx: 00:37 Hypertension; Prostate Cancer; bb - Immunization history:: Moderna x 2. - Social history:: Smoking status: Patient denies any tobacco usage or history of. Screenin:44 Abuse screen: Denies threats or abuse. Denies injuries from another. Nutritional tw5 screening:. Nutritional screening: No deficits noted. Tuberculosis screening: No symptoms or risk factors identified. Fall Risk IV access (20 points). Assessment: 01:48 General: Appears uncomfortable. Neuro: Level of Consciousness is awake, alert, obeys tw5 commands, Oriented to person, place, time, situation. 02:44 General: Reports "I felt some chest pain earlier that last for about 15 min. I am fine tw5 now.". Pain: Complains of pain in left breast Pain does not radiate. Pain currently is 0 out of 10 on a pain scale. at worst was 10 out of 10 on a pain scale. Quality of pain is described as sharp, shooting, Pain began suddenly. Vital Signs: 00:35 BP 108 / 84; Pulse 96; Resp 16 S; Temp 98.2(O); Pulse Ox 98% on R/A; Weight 65.77 kg bb (R); Height 5 ft. 11 in. (180.34 cm) (R); Pain 0/10; 01:57 BP 132 / 87; Pulse 86; Resp 15; Temp 98.3; Pulse Ox 100% on R/A; wm 02:09 BP 131 / 87; Pulse 80; Resp 22; Pulse Ox 100% on R/A; bb 02:44 BP 138 / 90; Pulse 81; Resp 18; Pulse Ox 100% on R/A; tw5 03:20 BP 142 / 83; Pulse 83; Resp 23; Temp 97.6; Pulse Ox 100% on R/A; wm 00:35 Body Mass Index 20.22 (65.77 kg, 180.34 cm) bb ED Course: 09/28 23:16 Patient arrived in ED. bp1 0413 00:37 Triage completed. bb 00:37 Arm band placed on Patient placed in waiting room, Patient notified of wait time. EKG bb completed in triage. Results shown to MD. Labs ordered per protocol. Drawn by ED staff. 00:45 Initial lab(s) drawn, by me, sent to lab. Inserted saline lock: 22 gauge in left bb antecubital area, using aseptic technique. Blood collected. 01:08 XRAY Chest (1 view) In Process Unspecified. EDMS 01:37 Conchis Jiménez is Primary Nurse. tw5 01:50 Declan Pope MD is Attending Physician. 7 02:00 Safety checks: Door open/sign placed on door: yes. Bed in low position. Call light in wm reach. Side rails up X2. Lights dimmed. Warm blanket given. Head of bed elevated. pvc monitor on. Pulse ox on. NIBP on. 02:09 Patient maintains SpO2 saturation greater than 95% on room air. bb 02:31 Kiran Lai MD is Hospitalizing Provider. [facility] 03:30 No provider procedures requiring assistance completed. Patient admitted, IV remains in tw5 place. Administered Medications: 02:44 Drug: Aspirin Chewable Tablet 324 mg Route: PO; tw5 03:30 Follow up: Response: No adverse reaction tw5 02:44 Drug: morphine 2 mg Route: IVP; Site: left antecubital; tw5 03:30 Follow up: Response: No adverse reaction; Pain is decreased; RASS: Alert and Calm (0) 02:44 Drug: Zofran (Ondansetron) 4 mg Route: IVP; Site: left antecubital; tw5 03:30 Follow up: Response: No adverse reaction tw5 Outcome: 02:31 Decision to Hospitalize by Provider. 7 03:30 Admitted to ER Hold. Please see [facility] for further documentation. tw5 03:30 Condition: stable 03:30 Instructed on the need for admit. 19:14 Patient left the ED. tw2 Signatures: Dispatcher [employer] EDMS Christi Lozano RN RN bb Josy Hitchcock RN RN tw2 Martha Godinez Maurice, MD MD [facility] Ana Stark Tiffany [facility]
[2021-09-29] MEDS ORDERED: ASPIRIN 81 MG CHEWABLE TABLET ONE (02:42)
[2021-09-29] MEDS ORDERED: MORPHINE 2 MG/ML SYR ONE ×2 (02:43→11:04)
[2021-09-29] MEDS ORDERED: ONDANSETRON 4 MG/2 ML VIAL ONE ×2 (02:43→11:04)
--- NOTE | 2021-09-29 03:14 | P.HP ---
Certification for Inpatient Patient admitted to: Observation With expected LOS: <2 Midnights Patient will require the following post-hospital care: None Practitioner: I am a practitioner with admitting privileges, knowledge of patient current condition, hospital course, and medical plan of care. Services: Services provided to patient in accordance with Admission requirements found in Title 42 Section 412.3 of the Code of Federal Regulations Patient History Date of Service: 09/29/21 Primary Care Provider: Dr. Storey Reason for admission: Chest pain History of Present Illness: 80-year-old -[place] male with history of prostate cancer, hypertension presents emergency department for chest pain. Patient reports that his pain began this evening while he was resting on the couch, pain is described as sharp nonradiating, has had multiple episodes this evening denies similar episodes in the past not relieved or exacerbated by anything in particular that he can point out. Patient denies any previous cardiac evaluation. His EKG was without ST elevation initial troponin high-sensitivity in the negative range 53.4 chest x- ray unremarkable ED provider wishes to admit under observation for ACS rule out. Allergies No Known Allergies Allergy (Verified 09/10/21 13:42) Home Medications: Amlodipine [Norvasc*] 5 mg PO DAILY 04/29/20 Tamsulosin [Flomax*] 0.4 mg PO DAILY 04/29/20 hydroCHLOROthiazide [Hydrodiuril*] 25 mg PO DAILY 04/29/20 Codeine/APAP [Tylenol W/Codeine #3 tab] 1 tab PO Q6HP PRN #12 tab 09/13/21 Smz./Tmp. [Bactrim Ds 800 MG/160 MG] 1 tab PO BID #6 tab 09/13/21 - Past Medical/Surgical History -: Prostate cancer -: Hypertension -: Prostatectomy Psychosocial/ Personal History: Lives at home with his family - Family History Mother -: Diabetes, Cancer Brother -: Diabetes Sister -: Diabetes - Social History Smoking Status: Never smoker Alcohol use: No CD- Drugs: No Caffeine use: Yes Place of Residence: Home Review of Systems 10-point ROS is otherwise unremarkable Respiratory: Shortness of Breath, As per HPI Physical Examination - Physical Exam General: Alert, In no apparent distress HEENT: Atraumatic, PERRLA, Mucous membr. moist/pink, EOMI, Sclerae nonicteric Neck: Supple, 2+ carotid pulse no bruit, No LAD, Without JVD or thyroid abnormality Respiratory: Clear to auscultation bilaterally, Normal air movement Cardiovascular: Regular rate/rhythm, Normal S1 S2 Gastrointestinal: Normal bowel sounds, No tenderness Musculoskeletal: No tenderness Integumentary: No rashes Neurological: Normal gait, Normal speech, Normal strength at 5/5 x4 extr, Normal tone, Normal affect Lymphatics: No axilla or inguinal lymphadenopathy - Studies Laboratory Data (last 24 hrs) 09/29/21 00:45: WBC 4.6, Hgb 11.1 L, Hct 33.4 L, Plt Count 139 L 09/29/21 00:45: Sodium 138, Potassium 3.9, BUN 21 H, Creatinine 1.03, Glucose 113 H Assessment and Plan - Plan Assessment: Chest pain rule out ACS Hypertension Prostate cancer status post prostatectomy Plan: Chest pain rule out ACS: Monitor on telemetry, trend troponins, cardiology consult in place. Aspirin, statin, beta-jasiel therapy, as needed morphine. Hypertension: Patient unsure of home medications will initiate beta-jasiel therapy given chest pain at this time. Continue home medications when verified. Prostate cancer status post prostatectomy: Stable. Patient reports having prostate surgery approximately 1 week ago. DVT PPX: Lovenox Code status: Full Discharge Plan: Home Plan to discharge in: 24 Hours - Advance Directives Does patient have a Living Will: No Does patient have a Durable POA for Healthcare: No - Code Status/Comfort Care Code Status Assessed: Yes (Full) Critical Care: No Time Spent Managing Pts Care (In Minutes): 55
[2021-09-29] MEDS ORDERED: MORPHINE 2 MG/ML SYR IV PRN (03:37)
[2021-09-29] MEDS ORDERED: ONDANSETRON 4 MG/2 ML VIAL IV PRN (03:37)
[2021-09-29] MEDS ORDERED: METOPROLOL TAR 25 MG TAB PO SCH (06:00)
[2021-09-29 06:07] VITALS: TEMP 97.6
[2021-09-29 06:37] VITALS: O2SAT 97; BMI 20.2
[2021-09-29] MEDS ORDERED: ENOXAPARIN 40 MG/0.4 ML SQ SCH (09:00)
[2021-09-29] MEDS ORDERED: ASPIRIN EC 81 MG TAB PO SCH (09:00)
[2021-09-29] MEDS ORDERED: ASPIRIN EC 81 MG TAB PO ONE (09:05)
[2021-09-29] MEDS ORDERED: ENOXAPARIN 40 MG/0.4 ML SQ ONE (09:06)
[2021-09-29] MEDS ORDERED: METOPROLOL TAR 25 MG TAB ONE (09:31)
--- NOTE | 2021-09-29 10:14 | P.DS ---
Admission Date: 09/29/21 Discharge Date: 09/29/21 Primary Care Provider: Dr. Storey Disposition: ROUTINE DISCHARGE Discharge Condition: GOOD Reason for Admission: Chest pain Brief History of Present Illness: 80-year-old -[place] male with history of prostate cancer, hypertension presents emergency department for chest pain. Patient reports that his pain began this evening while he was resting on the couch, pain is described as sharp nonradiating, has had multiple episodes this evening denies similar episodes in the past not relieved or exacerbated by anything in particular that he can point out. Patient denies any previous cardiac evaluation. His EKG was without ST elevation initial troponin high-sensitivity in the negative range 53.4 chest x- ray unremarkable ED provider wishes to admit under observation for ACS rule out. Hospital Course: He was evaluated by cardiology and was deemed to be at low risk for significant ACS. Troponin trend was also negative. Telemetry did not show any acute abnormality. He will be discharged home to follow-up with cardiology as scheduled on outpatient and his primary care doctor. He is to continue aspirin therapy and statin therapy. Vital Signs/Physical Exam: Temp Pulse Resp BP Pulse Ox 97.6 F 83 17 122/86 100 09/29/21 04:00 09/29/21 09:00 09/29/21 08:00 09/29/21 09:00 09/29/21 08:00 General: Alert HEENT: Atraumatic, Normocephalic Neck: Supple Respiratory: Normal air movement Cardiovascular: Regular rate/rhythm Gastrointestinal: Soft and benign Neurological: Normal strength at 5/5 x4 extr Laboratory Data at Discharge: WBC 4.6 K/uL (4.3-10.9) 09/29/21 00:45 Hgb 11.1 g/dL (13.6-17.9) L 09/29/21 00:45 Hct 33.4 % (39.6-49.0) L 09/29/21 00:45 Plt Count 139 K/uL (152-406) L 09/29/21 00:45 Sodium 138 mmol/L (136-145) 09/29/21 00:45 Potassium 3.9 mmol/L (3.5-5.1) 09/29/21 00:45 BUN 21 mg/dL (7-18) H 09/29/21 00:45 Creatinine 1.03 mg/dL (0.55-1.3) 09/29/21 00:45 Glucose 113 mg/dL (74-106) H 09/29/21 00:45 Triglycerides 82 mg/dL (<150) 09/29/21 05:11 Cholesterol 224 mg/dL (<200) H 09/29/21 05:11 HDL Cholesterol 65 mg/dL (40-60) H 09/29/21 05:11 Cholesterol/HDL Ratio 3.45 09/29/21 05:11 Home Medications: Amlodipine [Norvasc*] 5 mg PO DAILY 04/29/20 Tamsulosin [Flomax*] 0.4 mg PO DAILY 04/29/20 hydroCHLOROthiazide [Hydrodiuril*] 25 mg PO DAILY 04/29/20 Codeine/APAP [Tylenol #3*] 1 tab PO Q6HP PRN #12 tab 09/13/21 Smz./Tmp. [Bactrim Ds 800 MG/160 MG*] 1 tab PO BID #6 tab 09/13/21 Diet: Regular Activity: Ad trever Followup: Unknown,U [Primary Care Provider] -
--- NOTE | 2021-09-29 10:57 | EKG ---
Test Date: 2021-09-29 Test Time: 00:27:50 Bulk Plant Operator: MINGO MEASUREMENT RESULTS: Intervals: Rate: 94 [place]: 140 QRSD: 78 QT: 354 QTc: 442 [place]: P: 47 [place]: 140 QRS: -36 T: 65 INTERPRETIVE STATEMENTS: Normal sinus rhythm Left axis deviation Abnormal ECG Compared to ECG 09/10/2021 13:20:32 No significant changes Electronically Signed On 09-29-21 10:57:09 CDT by John Micehle
--- NOTE | 2021-09-29 11:08 | ECHO ---
HEIGHT: 5 ft 11 in WEIGHT: 145 lb 0 oz DATE OF STUDY: 09/29/[address]: John Michele MD 2-DIMENSIONAL: YES M.MODE: YES DOPPLER: YES COLOR FLOW: YES TDS: PORTABLE: YES DEFINITY: BUBBLE STUDY: DIAGNOSIS: CHEST PAIN CARDIAC HISTORY: CATHERIZATION: SURGERY: PROSTHETIC VALVE: PACEMAKER: MEASUREMENTS (cm) DIASTOLIC (NORMALS) SYSTOLIC (NORMALS) IVSd 0.9 (0.6-1.2) LA Diam 2.9 (1.9-4.0) LVEF 61% LVIDd 3.6 (3.5-5.7) LVIDs 2.5 (2.0-3.5) %FS 32% LVPWd 1.1 (0.6-1.2) Ao Diam 3.3 (2.0-3.7) 2 DIMENSIONAL ASSESSMENT: RIGHT ATRIUM: NORMAL LEFT ATRIUM: NORMAL RIGHT VENTRICLE: NORMAL LEFT VENTRICLE: NORMAL TRICUSPID VALVE: NORMAL MITRAL VALVE: NORMAL PULMONIC VALVE: NORMAL AORTIC VALVE: SCLEROSIS PERICARDIAL EFFUSION: NONE AORTIC ROOT: NORMAL LEFT VENTRICULAR WALL MOTION: NORMAL DOPPLER/COLOR FLOW: NORMAL COMMENTS: AORTIC SCLEROSIS - NO STENOSIS. NORMAL LEFT VENTRICULAR SIZE AND FUNCTION. NO WALL MOTION ABNORMALITY. NO EFFUSION. TECHNOLOGIST: KALEY ABREU
--- NOTE | 2021-09-29 13:46 | RAD REPORT ---
EXAM DESCRIPTION: RAD - Chest Single View - 09/29/2021 1:07 am CLINICAL HISTORY: 80 years, Male, CHEST PAIN COMPARISON: None. FINDINGS: Single view of the chest was obtained portable. No prior films are available for compariso n. The cardiomediastinal silhouette demonstrate to be unremarkable. The heart is not enlarged. The thoracic aorta is mildly tortuous. The pulmonary vasculature is normal distribution Costophrenic angl es are sharp. No areas of consolidation or masses are seen. There are significant degenerative young ges bilateral shoulders. The rest of the soft tissue and bony structures demonstrate to be unremarkab le. IMPRESSION: No acute cardiopulmonary disease is seen. Electronically signed by: Franco Felipe MD 09/29/2021 1:19 AM CDT Due to temporary technical issues with the PACS/Fluency reporting system, reports are being signed by the in house radiologist without review as a courtesy to ensure prompt reporting. The interpreting r adiologist is fully responsible for the content of the report
[2021-09-29 16:38] VITALS: BP 109/74
[2021-09-29] MEDS ORDERED: ATORVASTATIN 40 MG TAB PO SCH (21:00)
--- NOTE | 2021-09-30 09:02 | CON ---
Date of Consultation: 09/29/2021 Reason For Consultation: Atypical chest pain. History Of Present Illness: Mr. Benjamin was admitted by Dr. Lai. He is 80 years old. Has a history of hypertension and prostate cancer, but no previous cardiac history. He comes in with atyp ical sharp chest pain over the left lateral chest without any nausea, vomiting, diaphoresis, PND, ort hopnea, pedal edema, palpitations, or syncope. Denied any fever or chills. His pain has been going on for about 2 days. It is nonexertional. He is already ruled out for an SC. Past Medical History: As stated above. Allergies: NONE. Review of Systems: Negative. Social History: Negative. Family History: Negative. Medications: At home include Norvasc, Flomax, and hydrochlorothiazide. Physical Examination: Vital Signs: Stable. General: He was alert and oriented x3. He was in sinus rhythm. HEENT: Negative. Neck: Supple with no bruit. Chest: Clear. Cardiac: Revealed a regular rhythm and rate with S4 gallops. No murmurs or rubs. Abdomen: Benign. Extremities: Revealed no clubbing, cyanosis, or edema. Diagnostic Data: All within normal limit. Echocardiogram showed normal ejection fraction with aorti c sclerosis. No wall motion abnormalities. Impression And Plan: 1.Atypical chest pain. Myocardial infarction ruled out. Echocardiogram is normal. 2.Hypertension. 3.History of prostate cancer. I think Mr. Benjamin is cleared to go home from my standpoint. We will make arrangements for him to have an outpatient MPI in the office in the very near future. THANH/CHUCK Voice ID: [id number] Report ID: [id number]
== END 2021-09-29 18:34 | disposition home or self-care (01) ==
LOC: ER 23:10 → ERHOLD 09-29 03:14
PROVIDERS: ADMIT Internal Medicine Nephrology; ATTEND Internal Medicine Nephrology
DX: R07.89 Other chest pain (principal); I10 Essential (primary) hypertension; Z98.890 Other specified postprocedural states; Z20.822 Contact with and (suspected) exposure to COVID-19; Z85.46 Personal history of malignant neoplasm of prostate; Z90.79 Acquired absence of other genital organ(s); Z83.3 Family history of diabetes mellitus
CPT/HCPCS: 93005; 93306; 85025; 80048; 36415; 80061; 84484 ×3; 71045; U0003; J1650; J2270 ×2; J2405 ×2; G0378 ×2

== ENCOUNTER 2021-10-16 06:52 | Emergency (ER) | payer OTHER ==
--- OUTSIDE RECORDS SUMMARY | 2021-10-16 06:56 | XMS REPORT | Continuity of Care Document ---
:1940 Author Organization [facility] t Address [address] [place] [address] Care Team Providers Name Role Phone Tylor Storey Attending Clinician Unavailable HEAVEN Attending Clinician Unavailable JARRELL JANSEN Attending Clinician Unavailable PASHA BRADLEY Admitting Clinician Unavailable Payers Payer Name Policy Type Policy Number Effective Date Expiration Date S tam MEDICARE A B [id number] [employer] MEDICARE HMO [id number] 2020 POS PPO 00:00:00 Problems This patient has no known problems. Allergies, Adverse Reactions, Alerts Allergy Allergy Status Severity Reaction(s) Onset Inactive Treating Comm ents Source Name Type Date Date Clinician NO KNOWN Allergy Active [facility] Medications This patient has no known medications. [...] Clinicians Facility Department ID 2021-07-14 [facility] [id number] 13:02:23 59460 Farhana Helena mendoza [facility] Clin[facility] 2021-07-14 Outpatient [facility] [id number] [facility] 12:49:20 [id number] [facility] 2021-07-14 Outpatient [facility] [id number] [facility] 12:35:50 [id number] [facility] 2021-07-14 Outpatient [facility] [id number] [facility] 12:17:36 [id number] [facility] 2021-07-14 Outpatient [facility] [id number] [facility] 12:10:59 [id number] [facility] 2021-10-07 2021-10-07 ambulatory [facility] [id number] [facility] 2021-09-16 2021-09-16 ambulatory [facility] [id number] [facility] 2021-08-26 2021-08-26 Outpatient [facility] [id number] 11:24:30 11:24:30 2021-08-25 2021-08-25 ambulatory [facility] [id number] [facility] 2021-08-16 2021-08-16 ambulatory [facility] [id number] [facility] 2021-08-10 2021-08-13 Inpatient JUSTYNA [facility] Neurosurger [id number] [facility] 18:19:00 13:17:00 SUNG y 2020-11-11 2020-11-11 Outpatient [facility] [id number] [facility] 2020-11-06 2020-11-06 Outpatient [facility] [id number] [facility] 2020-10-15 2020-10-15 Outpatient [facility] [id number] [facility] 2020-10-14 2020-10-14 Outpatient [facility] [id number] [facility] 2020-09-24 2020-09-24 Outpatient [facility] [id number] [facility] 2020-08-21 2020-08-21 Outpatient [facility] [id number] [facility] 2020-08-20 2020-08-20 Out[facility] [id number] [facility] 2020-06-18 2020-06-18 Outpatient [facility] [id number] [facility] 2020-06-15 2020-06-15 Outpatient [facility] [id number] [facility] 2020-06-10 2020-06-10 Outpatient [facility] [id number] [facility] 2020-05-26 2020-05-26 Outpatient [facility] [id number] [facility] 2020-05-25 2020-05-25 Outpatient [facility] [id number] [facility] Results Test Description Test Time Test Comments Results Result [facility] e Comments CYTOLOGY 2021-08-18 Medical Cytology Report 10:42:57 Case: [id number] Authorizing Provider: Anabela Bradley, Collected: 08/11/2021 01:33 AM Ordering Location: [address] Received: 08/11/2021 09:59 AM Service Pathologist: Eden Villareal MD Specimen: Urine, Voided URINE, VOIDED: - HIGHLY SUSPICIOUS FOR MALIGNANCY - SEE COMMENT Signing Pathologist Direct Phone Line: [phone] y signed by Eden Villareal MD on [...] PSA is negative. NKX3.1 was attempted at [facility] but the tissue of interest present on the original cell block are no longer present on this stain. Correlation with clinical and/or radiologic findings is recommended with consideration to tissue evaluation of the mass.16714, 61269, 68619 X 2History of prostate cancer with metastasis to lung, hypertension who [facility] with back painURINE, [...] evaluated Immunohistochemistry technical testing was performed at [facility] (GATA[facility], PSA), Pathology Laboratory where it was [...] al stain for NKX3.1 was performed at [facility] for technical component only (reference #[id number], [id number])[facility], Department of Pathology, [address] [place] [address], [facility] [place] [address], [facility], Department of Pathology, [address] [place] [address], [facility], Department of Pathology, [address] [place] [address], BASIC METABOLIC PANEL 2021-08-13 06:04:41 Test Item [...] NOT 1092) ACCURATE CRE ATININE CLEARANCE IN SD EDICTING GLOMERULAR FILT RATION RATE. ESTIMATED GFR IS NOT APPLICABLE FOR DIALYSIS PATIENTS. Swing Saw Operator ID - PIAYA LCBC W/PLT COUNT & AUTO [id number] 05:17:43 Test Item Value Reference Range Interpretation [...] PERCENT (BEAKER) (test code = 2801) CALCIUM, [id number] 05:15:18 Test Item Value Reference Range Interpretation Comments CALCIUM IONIZED (BEAKER) (test 1.27 mmol/L 1.12-1.27 code = 698) PH, BLOOD (BEAKER) (test code = 7.43 1810) MR, SPINE, CERVICAL, [id number] 19:01:00Unlisted Reason for Exam - Click Yes and Enter Reason Below->YesUnlisted Reason for Exam->Concern for bony metastasesDeos the patient have an implanted electronic device?->No [facility] 1940 Sex: MFINAL REPORT [...] disc space height loss, most conspicuous at C4-N3Bhxjydrsc osseous metastases at everycervical level and within [...] at C4-C5, C5-C6 and C6-C7. Signed: Wendy Blount MDReport Verified Date/Time: 08/12/2021 19:01:02 C METABOLIC [id number] 17:52:30 Test Item Value Reference Range Interpretation [...] S NOT APPLICABLE FOR DIALYSIS PATIEN TS. Swing Saw Operator ID - BSCALCIUM, [id number] 17:33:50 Test Item Value Reference Range Interpretation Comments CALCIUM IONIZED (BEAKER) (test 1.23 mmol/L 1.12-1.27 code = 698) PH, BLOOD (BEAKER) (test code = 7.41 1810) VITAMIN D, [id number] 05:32:36 Test Item Value Reference Range Interpretation Comments VITAMIN D 25-OH (BEAKER) (test 26.3 ng/mL 6.6-49.9 code = 2764) Effective 03/29/2017: Reference Range ChangeNew: 6.6-49.9 ng/mL Previous: 13.0-47.8 ng/mLRecommended Vitamin D Target Range: 30.0-40.0 ng/mLOperator ID - BSPTH, [id number] 04:30:47 Test Item Value Reference Range Interpretation Comments PARATHYROID HORMONE INTACT 20.2 pg/mL 8.5-72.5 (BEAKER) (test code = 577) Swing Saw Operator ID - BECKA MBASIC METABOLIC [id number] 04:29:06 Test Item Value Reference Range Interpretation [...] S NOT APPLICABLE FOR DIALYSIS PATIEN TS. Swing Saw Operator ID - BSHEPATIC FUNCTION [id number] 04:29:06 Test Item Value Reference Range Interpretation [...] (test code = 13 U/L 6-55 347) Swing Saw Operator ID - BSCBC W/PLT COUNT & AUTO [id number] 04:16:02 Test Item Value Reference Range Interpretation [...] PERCENT (BEAKER) (test code = 2801) CALCIUM, [id number] 04:08:37 Test Item Value Reference Range Interpretation Comments CALCIUM IONIZED (BEAKER) (test 1.23 mmol/L 1.12-1.27 code = 698) PH, BLOOD (BEAKER) (test code = 7.43 1810) BASIC METABOLIC [id number] 19:23:38 Test Item Value Reference Range Interpretation [...] S NOT APPLICABLE FOR DIALYSIS PATIEN TS. Swing Saw Operator ID - BSCALCIUM, [id number] 19:02:08 Test Item Value Reference Range Interpretation Comments CALCIUM IONIZED (BEAKER) (test 1.30 mmol/L 1.12-1.27 H code = 698) PH, BLOOD (BEAKER) (test code = 7.41 1810) MR, SPINE, THORACIC, [id number] 19:01:00Unlisted Reason for Exam - Click Yes and Enter Reason Below->NoDeos the patient have an implantedelectronic device?->No[facility] : 1940 Sex: MFINAL REPORT [...] Verified Date/Time: 08/11/2021 19:01:14 MR, SPINE, LUMBAR, [id number] 19:01:00Unlisted Reason for Exam - Click Yes and Enter Reason Below->NoDeos the patient have an implantedelectronic device?->No[facility] : 1940 Sex: MFINAL REPORT [...] Wendy Blount MDReport Verified Date/Time: 08/11/2021 19:01:14 -COV2/RT-PCR ([facility])2021-08-11 13:54:50 Test Item Value Reference Range Interpretation Comments SARS-COV2/RT-PCR (test Negative Not Detected, Negative, code = 9355493) See external report for linked test SARS-COV-[address] [facility] (test code = 5776413) Negative result for this test determines that [...] 564(g) of the Act.Fact Sheet for Healthcare Providers:https://www.[employer]/sites/default/files/product/documents/Fact_Ingride m_BI_Wtahivyra_Fnpa_WRLR-OyZ-6.pdfFact Sheet for Healthcare Patients:https://www.[employer]/sites/default/files/product/ documents/Cplw_Uaywk_Mskpxdqp_Bnid_KTGV-MsD-8.pdfPerforming Laboratory:[facility], [place] [address]Q/S, RENAL, COMPLETE 2021-08-11 11:23:00Reason for exam:->Bladder mass. Rule out hydronephrosis. [facility] : 1940 Sex: MFINAL REPORT [...] Douglas Angeles MDReport Verified Date/Time: 08/11/2021 11:23:23 [id number] 06:48:30 Test Item Value Reference Range Interpretation [...] for patients with mechanical heart valves.COMPREHENSIVE METABOLIC [id number] 06:11:37 Test Item Value Reference Range Interpretation [...] S NOT APPLICABLE FOR DIALYSIS PATIEN TS. Swing Saw Operator ID - JUSTYN WURINALYSIS W/ [id number] 02:01:14 Test Item Value Reference Range Interpretation [...] = 1521) SOURCE(BEAKER) (test code = 2795) Swing Saw Operator ID - [auto]Swing Saw Operator ID - techCBC W/PLT COUNT & AUTO [...]
[2021-10-16] MEDS ORDERED: ONDANSETRON 4 MG/2 ML VIAL ONE (07:44)
[2021-10-16] MEDS ORDERED: MORPHINE 4 MG/ML SYR ONE (07:44)
--- NOTE | 2021-10-16 09:30 | RAD REPORT ---
EXAM DESCRIPTION: CT - Spine Lumbar Wo Con - 10/16/2021 9:13 am CLINICAL HISTORY: Low back pain, increased fracture risk COMPARISON: Bone scan 09/06/2021, CT abdomen and pelvis 08/10/2021 TECHNIQUE: Thin section axial imaging of the lumbar spine was performed from the mid T11 level to th e S4 level. Sagittal and coronal reconstruction images were generated and reviewed. All CT scans are performed using dose optimization technique as appropriate and may include automated exposure control or mA/KV adjustment according to patient size. FINDINGS: Lucent or lytic changes are present in the left-side stating T11 body. Right-side T12 lyti c changes are present extending from the right posterior body into the pedicle and posterior elements . Lateral cortex is disrupted at the body pedicle junction. Scattered lytic or lucent changes are present in the L1 body and right-side pedicle. Lytic changes ar e seen throughout the L2 body and right-side pedicle. Extensive lytic and sclerotic changes are present in the L3 body. There is slight loss in height noé g the superior endplate. Posterior wall height is preserved. The L3 right transverse process is fract ured. There are pathologic changes in the bilateral L3 transverse processes. L4 lytic changes are pre sent in the body, right-side pedicle, and bilateral transverse processes. Pathologic fracture of the L4 transverse process present. Lytic changes are present throughout most of each spinous process. L f orce spinous process may be fractured. Lamina are intact. Bony metastatic changes in the L5 body or comparatively mild. Prominent L4-5 disc and endplate degene rative changes are present. Disc bulge, endplate spurring, facet hypertrophy and ligamentous thickeni ng cause central spinal stenosis to 8 mm and significant bilateral foraminal stenosis. Extensive metastatic lytic changes are present in the bilateral sacral ala with areas of cortical dis ruption. Metastatic lytic changes are present in each ileum. No paraspinal soft tissue mass component. Large amount of stool is present dilating the rectum. IMPRESSION: Extensive bony metastatic disease is present in this patient with known bone metastases. L3 body shows mild height loss changes with posterior wall height preserved. These changes have shown progression from July 2021 imaging. Patient has additional lower lumbar degenerative disc disease. There is bilateral foraminal stenosis at L4-5 and central spinal stenosis as well.
--- NOTE | 2021-10-16 10:51 | ER ---
Nurse's Notes [facility] Name: Kade Benjamin Age: 80 yrs Sex: Male : 1940 Arrival Date: 10/16/2021 Time: 06:57 Bed 19 Private MD: Diagnosis: Metastatic Prostate Cancer (Bone): Back Pain from bone mets Presentation: 10/16 07:06 Chief complaint: Patient states: pt present to ED reporting leg weakness and back pain. hernandez pt denies any fall or injuries. Chief complaint:. Coronavirus screen: Vaccine status: Patient reports being unvaccinated. Ebola Screen: Patient denies travel to an Ebola-affected area in the 21 days before illness onset. Initial Sepsis Screen: Does the patient meet any 2 criteria? HR > 90 bpm. Does the patient have a suspected source of infection? No. Patient's initial sepsis screen is negative. Risk Assessment: Do you want to hurt yourself or someone else? Patient reports no desire to harm self or others. Onset of symptoms was October 15, 2021. 07:06 Method Of Arrival: EMS: [facility] 07:06 Acuity: MARGE 4 hernandez Triage Assessment: 07:11 General: Appears in no apparent distress. General: Behavior is calm, cooperative. Pain: hernandez Complains of pain in back. Historical: - Allergies: 07:09 No Known Allergies; hernandez - Home Meds: 07:09 amlodipine oral [Active]; unknown cancer medications [Active]; Pepcid 20 mg Oral tab 1 hernandez tab once daily [Active]; hydrocodone-acetaminophen 5-325 mg Oral tab 1 tab every 6 hours [Active]; - PMHx: 07:11 Hypertension; Prostate Cancer; hernandez - PSHx: 07:11 Unable to Obtain; hernandez - Immunization history:: Adult Immunizations up to date. - Social history:: Smoking status: Patient denies any tobacco usage or history of. Screenin:11 Abuse screen: Denies threats or abuse. Denies injuries from another. Nutritional hernandez screening: No deficits noted. Tuberculosis screening: No symptoms or risk factors identified. Fall Risk None identified. Assessment: 07:11 General: Appears in no apparent distress. Behavior is calm, cooperative. Pain: hernandez Complains of pain in back. Musculoskeletal: Reports weakness in right leg and left leg. Vital Signs: 07:06 BP 106 / 75; Pulse 108; Resp 17; Temp 97.8; Pulse Ox 100% ; Weight 70.31 kg; Height 9 hernandez ft. 78 in. (472.44 cm); 09:44 BP 118 / 68; Pulse 97; Resp 16; Pulse Ox 99% on R/A; hernandez 07:06 Body Mass Index 3.15 (70.31 kg, 472.44 cm) hernandez ED Course: 06:57 Patient arrived in ED. eb 07:00 Sommer José, RN is Primary Nurse. hernandez 07:01 Obi Yanez MD is Attending Physician. kdr 07:09 Triage completed. hernandez 07:11 Arm band placed on. hernandez 07:11 Patient has correct armband on for positive identification. Bed in low position. hernandez 07:11 No provider procedures requiring assistance completed. hernandez 07:48 Inserted saline lock: 20 gauge in left antecubital area, using aseptic technique. hernandez 09:14 Spine Lumbar Wo Con In Process Unspecified. EDMS 11:42 IV discontinued, intact, Pressure dressing applied. hernandez Administered Medications: 07:48 Drug: morphine 4 mg Route: IVP; Site: left antecubital; hernandez 07:48 Follow up: Response: No adverse reaction hernandez 07:48 Drug: Zofran (Ondansetron) 4 mg Route: IVP; Site: left antecubital; hernandez 07:48 Follow up: Response: No adverse reaction hernandez Outcome: 10:50 Discharge ordered by . kdr 11:42 Discharged to home hernandez 11:42 Condition: good 11:42 Discharge instructions given to patient, family, Prescriptions given X 1. 11:44 Patient left the ED. hernandez Signatures: Dispatcher [employer] EDMS Obi Yanez MD MD [facility] Eloina Herrmann Sommer José, RN RN hernandez
--- NOTE | 2021-10-16 10:51 | EDPHYS ---
Physician Documentation [facility] Name: Kade Benjamin Age: 80 yrs Sex: Male : 1940 Arrival Date: 10/16/2021 Time: 06:57 Bed 19 Private MD: ED Physician Obi Yanez HPI: 10/16 15:22 This 80 yrs old Black Male presents to ER via EMS with complaints of Back pain. kdr 15:22 Patient presents to the ED complaining of severe back pain. 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 He has been given pain medication to mitigate this discomfort however his significant other has not been giving him his medications on a regular routine basis. Patient otherwise has no other complaints. He is in a nontoxic state on presentation to the ED and he remained that way through his stay. He did improve with the interventions given. Onset: The symptoms/episode began/occurred last night. Severity of symptoms: At their worst the symptoms were moderate severe just prior to arrival, in the emergency department the symptoms are unchanged. The patient has experienced similar episodes in the past, a few times. The patient has not recently seen a physician. Historical: - Allergies: 07:09 No Known Allergies; hernandez - Home Meds: 07:09 amlodipine oral [Active]; unknown cancer medications [Active]; Pepcid 20 mg Oral tab 1 hernandez tab once daily [Active]; hydrocodone-acetaminophen 5-325 mg Oral tab 1 tab every 6 hours [Active]; - PMHx: 07:11 Hypertension; Prostate Cancer; hernandez - PSHx: 07:11 Unable to Obtain; hernandez - Immunization history:: Adult Immunizations up to date. - Social history:: Smoking status: Patient denies any tobacco usage or history of. ROS: 15:22 Constitutional: Negative for fever, chills, and weight loss, Eyes: Negative for injury, kdr pain, redness, and discharge, ENT: Negative for injury, pain, and discharge, Neck: Negative for injury, pain, and swelling, Cardiovascular: Negative for chest pain, palpitations, and edema, Respiratory: Negative for shortness of breath, cough, wheezing, and pleuritic chest pain, Abdomen/GI: Negative for abdominal pain, nausea, vomiting, diarrhea, and constipation, Back: Negative for new injury however he has chronic pain which is worse at this time due to lack of pain medication over the last 12 to 24 hours : Negative for injury, bleeding, discharge, and swelling, MS/Extremity: Negative for injury and deformity, Skin: Negative for injury, rash, and discoloration, Neuro: Negative for headache, weakness, numbness, tingling, and seizure activity. Psych: Negative for depression, anxiety, suicide ideation, homicidal ideation, and hallucinations, Allergy/Immunology: Negative for hives, rash, and allergies, Endocrine: Negative for neck swelling, polydipsia, polyuria, polyphagia, and marked weight changes, Hematologic/Lymphatic: Negative for swollen nodes, abnormal bleeding, and unusual bruising. Exam: 15:22 Constitutional: This is a well developed, well nourished patient who is awake, alert, kdr and in no acute distress. Head/Face: Normocephalic, atraumatic. Eyes: Pupils equal round and reactive to light, extra-ocular motions intact. Lids and lashes normal. Conjunctiva and sclera are non-icteric and not injected. Cornea within normal limits. Periorbital areas with no swelling, redness, or edema. Neck: Trachea midline, no thyromegaly or masses palpated, and no cervical lymphadenopathy. Supple, full range of motion without nuchal rigidity, or vertebral point tenderness. No Meningismus. Chest/axilla: Normal chest wall appearance and motion. Nontender with no deformity. No lesions are appreciated. Cardiovascular: Regular rate and rhythm with a normal S1 and S2. No gallops, murmurs, or rubs. Normal PMI, no JVD. No pulse deficits. Respiratory: Lungs have equal breath sounds bilaterally, clear to auscultation and percussion. No rales, rhonchi or wheezes noted. No increased work of breathing, no retractions or nasal flaring. Abdomen/GI: Soft, non-tender, with normal bowel sounds. No distension or tympany. No guarding or rebound. No evidence of tenderness throughout. Back: No spinal tenderness. No costovertebral tenderness. Full range of motion. Skin: Warm, dry with normal turgor. Normal color with no rashes, no lesions, and no evidence of cellulitis. MS/ Extremity: Pulses equal, no cyanosis. Neurovascular intact. Full, normal range of motion. Neuro: Awake and alert, GCS 15, oriented to person, place, time, and situation. Cranial nerves II-XII grossly intact. Motor strength 5/5 in all extremities. Sensory grossly intact. Cerebellar exam normal. Normal gait. Psych: Awake, alert, with orientation to person, place and time. Behavior, mood, and affect are within normal limits. Vital Signs: 07:06 BP 106 / 75; Pulse 108; Resp 17; Temp 97.8; Pulse Ox 100% ; Weight 70.31 kg; Height 9 hernandez ft. 78 in. (472.44 cm); 09:44 BP 118 / 68; Pulse 97; Resp 16; Pulse Ox 99% on R/A; hernandez 07:06 Body Mass Index 3.15 (70.31 kg, 472.44 cm) hernandez MDM: 10:50 Patient medically screened. kdr 15:22 Data reviewed: vital signs, nurses notes, lab test result(s), radiologic studies. kdr Counseling: I had a detailed discussion with the patient and/or guardian regarding: the historical points, exam findings, and any diagnostic results supporting the discharge/admit diagnosis, lab results, radiology results, the need for outpatient follow up. ED course: The patient is stable in the ED. He improved with interventions given. I explained to the patient and his that he needs to have scheduled pain medication to prevent him from getting in the state. The patient was happy with the care provided the plan for discharge and follow-up. 10/16 08:38 Order name: CT Lumbar Spine Wo Con kdr 10/16 08:42 Order name: Spine Lumbar Wo Con; Complete Time: 10:12 EDMS Administered Medications: 07:48 Drug: morphine 4 mg Route: IVP; Site: left antecubital; hernandez 07:48 Follow up: Response: No adverse reaction hernandez 07:48 Drug: Zofran (Ondansetron) 4 mg Route: IVP; Site: left antecubital; hernandez 07:48 Follow up: Response: No adverse reaction hernandez Disposition Summary: 10/16/21 10:50 Discharge Ordered Location: Home kdr Problem: an acute exacerbation kdr Symptoms: have improved kdr Condition: Stable kdr Diagnosis - Metastatic Prostate Cancer (Bone): Back Pain from bone mets kdr Followup: kdr - With: Private Physician - When: 2 - 3 days - Reason: If symptoms return, Further diagnostic work-up, Recheck today's complaints, Continuance of care, Re-evaluation by your physician Discharge Instructions: - Discharge Summary Sheet kdr - Bone Metastasis kdr - Metastatic Cancer kdr Forms: - Medication Reconciliation Form kdr - Thank You Letter kdr - Prescription Opioid Use kdr Prescriptions: - Tylenol-Codeine #3 300 mg-30 mg Oral - take 2 tablet by ORAL route every 6 hours As needed; 24 tablet; Refills: 0, kdr Product Selection Permitted Signatures: Dispatcher [employer] Obi Hitchcock MD MD kdr Sommer José RN RN hernandez
[2021-10-16 11:54] VITALS: TEMP 97.8
[2021-10-16 11:55] VITALS: BP 118/68; O2SAT 99
== END 2021-10-16 11:44 | disposition home or self-care (01) ==
LOC: ER 06:52
DX: G89.3 Neoplasm related pain (acute) (chronic) (principal); C61 Malignant neoplasm of prostate; C79.51 Secondary malignant neoplasm of bone; I10 Essential (primary) hypertension
CPT/HCPCS: 72131; 96375; 96374; 99284; J2405

== ENCOUNTER 2021-10-27 11:34 | Emergency (ER) | payer OTHER ==
--- OUTSIDE RECORDS SUMMARY | 2021-10-27 11:37 | XMS REPORT | Continuity of Care Document ---
:1940 Author Organization [facility] Address [address] [place] [address] Care Team Providers Name Role Phone Tylor Storey Attending Clinician Unavailable JARRELL JANSEN Attending Clinician Unavailable HEAVEN Attending Clinician Unavailable PASHA BRADLEY Admitting Clinician Unavailable Payers Payer Name Policy Type Policy Number Effective Date Expiration Date S tam MEDICARE A B [id number] [employer] MEDICARE HMO [id number] 2020 POS PPO 00:00:00 Problems This patient has no known problems. Allergies, Adverse Reactions, Alerts Allergy Allergy Status Severity Reaction(s) Onset Inactive Treating Comm ents Source Name Type Date Date Clinician NO KNOWN Allergy Active NPI:118 ALLERGIE [id number] S Medications This patient has no known medications. [...] Clinicians Facility Department ID 2021-07-14 [id number] NPI:174 13:02:23 [id number] 2021-07-[address] [facility] [id number] NPI:174 12:49:20 [id number] 2021-07-14 Outpatient [facility] [id number] NPI:174 12:35:50 [id number] 2021-07-14 Outpatient [facility] [id number] NPI:174 12:17:36 [id number] 2021-07-14 Outpatient [facility] [id number] NPI:174 12:10:59 [id number] 2021-10-07 2021-10-07 ambulatory [facility] [id number] NPI:174 00:00:00 00:00:00 [id number] 2021-09-16 2021-09-16 ambulatory [facility] [id number] NPI:174 00:00:00 00:00:00 [id number] 2021-08-26 2021-08-26 Outpatient [facility] [id number] [facility] 11:24:30 11:24:30 2021-08-25 2021-08-25 ambulatory [facility] [id number] NPI:174 00:00:00 00:00:00 [id number] 2021-08-16 2021-08-16 ambulatory [facility] [id number] NPI:174 00:00:00 00:00:00 [id number] 2021-08-10 2021-08-13 [id number] 18:19:00 13:17:00 ADOLFO figueroa 2020-11-11 2020-11-11 Outpatient [facility] [id number] NPI:174 00:00:00 00:00:00 [id number] 2020-11-06 2020-11-06 Outpatient [facility] [id number] NPI:174 00:00:00 00:00:00 [id number] 2020-10-15 2020-10-15 Outpatient [facility] [id number] NPI:174 00:00:00 00:00:00 [id number] 2020-10-14 2020-10-14 Outpatient [facility] [id number] NPI:174 00:00:00 00:00:00 [id number] 2020-09-24 2020-09-24 Outpatient [facility] [id number] NPI:174 00:00:00 00:00:00 [id number] 2020-08-21 2020-08-21 Outpatient [facility] [id number] NPI:174 00:00:00 00:00:00 [id number] 2020-08-20 2020-08-20 Outpatient [facility] [id number] NPI:174 00:00:00 00:00:00 [id number] 2020-06-18 2020-06-18 Outpatient [facility] [id number] NPI:174 00:00:00 00:00:00 [id number] 2020-06-15 2020-06-15 Outpatient [facility] [id number] NPI:174 00:00:00 00:00:00 [id number] 2020-06-10 2020-06-10 Outpatient [facility] [id number] NPI:174 00:00:00 00:00:00 [id number] 2020-05-26 2020-05-26 Outpatient [facility] [id number] NPI:174 00:00:00 00:00:00 [id number] 2020-05-25 2020-05-25 Outpatient [facility] [id number] NPI:174 00:00:00 00:00:00 [id number] Results Test Description Test Time Test Comments Results Result [facility] e Comments CYTOLOGY 2021-08-18 Medical Cytology Report 10:42:57 Case: [id number] Authorizing Provider: Anabela Bradley, Collected: 08/11/2021 01:33 AM Ordering Location: [address] Received: 08/11/2021 09:59 AM Service Pathologist: Eden Villareal MD Specimen: Urine, Voided URINE, VOIDED: - HIGHLY SUSPICIOUS FOR MALIGNANCY - SEE COMMENT Signing Pathologist Direct Phone Line: [phone] y signed by Eden Villareal MD on [...] PSA is negative. NKX3.1 was attempted at [facility] but the tissue of interest present on the original cell block are no longer present on this stain. Correlation with clinical and/or radiologic findings is recommended with consideration to tissue evaluation of the mass.26278, 14291, 42750 X 2History of prostate cancer with metastasis to lung, hypertension who [facility] ED with back painURINE, [...] evaluated Immunohistochemistry technical testing was performed at [facility] (GATA3, PSA), Pathology Laboratory where it [...] al stain for NKX3.1 was performed at [facility] for technical component only (reference #[id number], [id number])[facility], Department of Pathology, [address] [place], [place] [id number], [facility], [facility], [address] [place] [address], [facility], [facility] of [facility], [address] [place] [address], BASIC METABOLIC PANEL 2021-08-13 06:04:41 Test Item [...] NOT 1092) ACCURATE CRE ATININE CLEARANCE IN LA EDICTING GLOMERULAR FILT RATION RATE. ESTIMATED GFR IS NOT APPLICABLE FOR DIALYSIS PATIENTS. Application Systems Administrator ID - PIAYA LCBC W/PLT COUNT & AUTO [id number] 05:17:43 Test Item Value Reference Range Interpretation [...] PERCENT (BEAKER) (test code = 2801) CALCIUM, [id number] 05:15:18 Test Item Value Reference Range Interpretation Comments CALCIUM IONIZED (BEAKER) (test 1.27 mmol/L 1.12-1.27 code = 698) PH, BLOOD (BEAKER) (test code = 7.43 1810) MR, SPINE, CERVICAL, [id number] 19:01:00Unlisted Reason for Exam - Click Yes and Enter Reason Below->YesUnlisted Reason for Exam->Concern for bony metastasesDeos the patient have an implanted electronic device?->No [facility] : 1940 Sex: MFINAL [...] disc space height loss, most conspicuous at C4-G5Yikolvnpq osseous metastases at everycervical level and within [...] MDReport Verified Date/Time: 08/12/2021 19:01:02 C METABOLIC [id number] 17:52:30 Test Item Value Reference Range Interpretation [...] S NOT APPLICABLE FOR DIALYSIS PATIEN TS. Application Systems Administrator ID - BSCALCIUM, [id number] 17:33:50 Test Item Value Reference Range Interpretation Comments CALCIUM IONIZED (BEAKER) (test 1.23 mmol/L 1.12-1.27 code = 698) PH, BLOOD (BEAKER) (test code = 7.41 1810) VITAMIN D, [id number] 05:32:36 Test Item Value Reference Range Interpretation Comments VITAMIN D 25-OH (BEAKER) (test 26.3 ng/mL 6.6-49.9 code = 2764) Effective 03/29/2017: Reference Range ChangeNew: 6.6-49.9 ng/mL Previous: 13.0-47.8 ng/mLRecommended Vitamin D Target Range: 30.0-40.0 ng/mLOperator ID - BSPTH, [id number] 04:30:47 Test Item Value Reference Range Interpretation Comments PARATHYROID HORMONE INTACT 20.2 pg/mL 8.5-72.5 (BEAKER) (test code = 577) Application Systems Administrator ID - BECKA MBASIC METABOLIC [id number] 04:29:06 Test Item Value Reference Range Interpretation [...] S NOT APPLICABLE FOR DIALYSIS PATIEN TS. Application Systems Administrator ID - BSHEPATIC FUNCTION [id number] 04:29:06 Test Item Value Reference Range Interpretation [...] (test code = 13 U/L 6-55 347) Application Systems Administrator ID - BSCBC W/PLT COUNT & AUTO [id number] 04:16:02 Test Item Value Reference Range Interpretation [...] PERCENT (BEAKER) (test code = 2801) CALCIUM, [id number] 04:08:37 Test Item Value Reference Range Interpretation Comments CALCIUM IONIZED (BEAKER) (test 1.23 mmol/L 1.12-1.27 code = 698) PH, BLOOD (BEAKER) (test code = 7.43 1810) BASIC METABOLIC [id number] 19:23:38 Test Item Value Reference Range Interpretation [...] S NOT APPLICABLE FOR DIALYSIS PATIEN TS. Application Systems Administrator ID - BSCALCIUM, [id number] 19:02:08 Test Item Value Reference Range Interpretation Comments CALCIUM IONIZED (BEAKER) (test 1.30 mmol/L 1.12-1.27 H code = 698) PH, BLOOD (BEAKER) (test code = 7.41 1810) MR, SPINE, THORACIC, [id number] 19:01:00Unlisted Reason for Exam - Click Yes and Enter Reason Below->NoDeos the patient have an implantedelectronic device?->[facility] : 1940 Sex: MFINAL [...] Verified Date/Time: 08/11/2021 19:01:14 MR, SPINE, LUMBAR, [id number] 19:01:00Unlisted Reason for Exam - Click Yes and Enter Reason Below->NoDeos the patient have an implantedelectronic device?->No[facility] : 1940 Sex: [...] [place] MDReport Verified Date/Time: 08/11/2021 19:01:14 -COV2/RT-PCR ([facility])2021-08-11 13:54:50 Test Item Value Reference Range Interpretation Comments SARS-COV2/RT-PCR (test Negative Not Detected, Negative, code = 0745770) See external report for linked test SARS-COV-2 PERFORMING LAB [facility] (test code = 7425123) Negative result for this test determines that [...] 564(g) of the Act.Fact Sheet for Healthcare Providers:https://www.[employer]/sites/default/files/product/documents/Fact_Shee e_ZN_Vvkpxmzzc_Ylvu_QUDY-YiA-2.pdfFact Sheet for Healthcare Patients:https://www.[employer]/sites/default/files/product/ documents/Fjjb_Ksegt_Xsiohtxi_Limq_FTCH-LtL-4.pdfPerforming Laboratory:[facility], [place] [address]Y/S, RENAL, COMPLETE 2021-08-11 11:23:00Reason for exam:->Bladder mass. Rule out hydronephrosis. [facility] : 1940 Sex: MFINAL [...] [place] MDReport Verified Date/Time: 08/11/2021 11:23:23 [id number] 06:48:30 Test Item Value Reference Range Interpretation [...] for patients with mechanical heart valves.COMPREHENSIVE METABOLIC [id number] 06:11:37 Test Item Value Reference Range Interpretation [...] S NOT APPLICABLE FOR DIALYSIS PATIEN TS. Application Systems Administrator ID - JUSTYN WURINALYSIS W/ [id number] 02:01:14 Test Item Value Reference Range Interpretation [...] = 1521) SOURCE(BEAKER) (test code = 2795) Application Systems Administrator ID - [auto]Application Systems Administrator ID - techCBC W/PLT COUNT & AUTO [...] % 0-1 PERCENT (BEAKER) (test code = 9501)
[2021-10-27] MEDS ORDERED: NA CHLORIDE 0.9% 1,000 ML ONE ×2 (12:12→14:40)
[2021-10-27] MEDS ORDERED: ONDANSETRON 4 MG/2 ML VIAL ONE (12:12)
[2021-10-27 12:47] LABS: Absolute Lymphocytes (CBC) 0.7 K/uL (0.7-4.9); Hematocrit 26.2 % (39.6-49.0); Lymphocytes % 14.7 % (15.3-44.8); MPV 8.6 fL (7.6-11.3); RBC Red Blood Cell Count 2.81 M/uL (4.33-5.43)
[2021-10-27 13:07] LABS: Albumin 2.1 g/dL (3.4-5.0); Bilirubin Total 1.1 mg/dL (0.2-1.0); Potassium 4.3 mmol/L (3.5-5.1); Protein, Total 6.4 g/dL (6.4-8.2)
[2021-10-27] MEDS ORDERED: MORPHINE 4 MG/ML SYR ONE (13:22)
--- NOTE | 2021-10-27 13:54 | RAD REPORT ---
EXAM DESCRIPTION: CT - Abdomen Pelvis Wo Contrast - 10/27/2021 1:28 pm CLINICAL HISTORY: Abdominal pain COMPARISON: July 2021 and September 2021 TECHNIQUE: Computed axial tomography of the abdomen and pelvis was obtained. IV and oral contrast we re not requested. All CT scans are performed using dose optimization technique as appropriate and may include automated exposure control or mA/KV adjustment according to patient size. FINDINGS: The evaluation of solid organs, vessels and bowel is limited secondary to the lack of con trast administration. Development of several small hepatic lesions. Spleen, pancreas and adrenals grossly normal. Small bilateral pleural effusions Mild right hydronephrosis. Moderate left hydronephrosis. Bilateral hydroureter. Mild soft tissue with in the posterior bladder No evidence of diverticulitis. Progression in extensive bony metastases. IMPRESSION: Progression in extensive bony metastases. Development of small hepatic lesions likely metastases Moderate left hydronephrosis. Mild right hydronephrosis. Bilateral hydroureter. Obstruction is at the UVJ level . Mild soft tissue posterior bladder could be residual tumor or post treatment change
[2021-10-27 14:38] LABS: Anisocytosis 2+; Blood Morphology Comment NOTED (NOT SEEN); Platelet Estimate DECR; Poikilocytosis 2+; White Blood Cell Scan OK (OK)
--- NOTE | 2021-10-27 14:41 | ER ---
Nurse's Notes [facility] Name: Kade Benjamin Age: 80 yrs Sex: Male : 1940 Arrival Date: 10/27/2021 Time: 11:37 Bed 7 Private MD: Diagnosis: Bilateral hydronephrosis;Prostate cancer with metastasis;Acute Kidney injury Presentation: 10/27 11:39 Chief complaint: EMS states: C/O upper abdominal pain and constipation, last BM approx ph 2 weeks ago. Abdomen noted to be distended, VSS, hx of prostate cancer and HTN, did not take BP meds this morning. Coronavirus screen: Vaccine status: Patient reports receiving the 2nd dose of the covid vaccine. Ebola Screen: No symptoms or risks identified at this time. Initial Sepsis Screen: Does the patient meet any 2 criteria? No. Patient's initial sepsis screen is negative. Does the patient have a suspected source of infection? No. Patient's initial sepsis screen is negative. Risk Assessment: Do you want to hurt yourself or someone else? Patient reports no desire to harm self or others. Onset of symptoms. 11:39 Method Of Arrival: EMS: [facility] [place] 11:39 Acuity: MARGE 2 ph Triage Assessment: 11:42 General: Appears in no apparent distress. Behavior is calm, cooperative, appropriate ph for age, Denies fever, feeling ill. Pain: Complains of pain in right upper quadrant and left upper quadrant. Neuro: Level of Consciousness is awake, alert, obeys commands, Oriented to person, place, time, situation. Cardiovascular: Capillary refill < 3 seconds in bilateral fingers Patient's skin is warm and dry. Respiratory: Airway is patent Respiratory effort is even, unlabored. GI: Abdomen is distended, Bowel sounds present X 4 quads. Reports upper abdominal pain, constipation, nausea. Derm: Skin is intact, Skin is normal. Musculoskeletal: Circulation, motion, and sensation intact. Range of motion: intact in all extremities. Historical: - Allergies: 11:41 No Known Allergies; ph - Home Meds: 11:41 amlodipine oral [Active]; hydrocodone-acetaminophen 5-325 mg Oral tab 1 tab every 6 ph hours [Active]; Pepcid 20 mg Oral tab 1 tab once daily [Active]; - PMHx: 11:41 Hypertension; Prostate Cancer; ph - Immunization history:: Adult Immunizations unknown. - Social history:: Smoking status: Patient denies any tobacco usage or history of. Screenin:45 Abuse screen: Denies threats or abuse. Denies injuries from another. Nutritional ph screening: No deficits noted. Tuberculosis screening: No symptoms or risk factors identified. Fall Risk None identified. Assessment: 12:18 General: SEE TRIAGE ASSESSMENT. ph 12:48 Reassessment: Cleansed patient of urinary and bowel incontinence. Large void noted as ss well as small/ soft BM. Large, unstageable sacral wound noted. Pt states he does not seeing a physician for this wound yet, but was working with somebody to have home health set up. Neuro: Level of Consciousness is awake, alert. Respiratory: Respiratory effort is even, unlabored. 14:00 Reassessment: Patient appears in no apparent distress at this time. Patient and/or ph family updated on plan of care and expected duration. Pain level reassessed. Patient is alert, oriented x 3, equal unlabored respirations, skin warm/dry/pink. 15:14 Reassessment: Patient appears in no apparent distress at this time. Patient and/or ph family updated on plan of care and expected duration. Pain level reassessed. Patient is alert, oriented x 3, equal unlabored respirations, skin warm/dry/pink. 16:00 Reassessment: Patient appears in no apparent distress at this time. Patient and/or ph family updated on plan of care and expected duration. Pain level reassessed. Patient is alert, oriented x 3, equal unlabored respirations, skin warm/dry/pink. 17:40 Reassessment: Patient appears in no apparent distress at this time. Patient and/or ph family updated on plan of care and expected duration. Pain level reassessed. Patient is alert, oriented x 3, equal unlabored respirations, skin warm/dry/pink. [facility] at bedside. Vital Signs: 11:39 BP 90 / 63; Pulse 116; Resp 16; Temp 97.9; Pulse Ox 98% on R/A; Weight 61.23 kg; Height ph 5 ft. 11 in. (180.34 cm); Pain 8/10; 12:19 BP 81 / 57; Pulse 111; Resp 16; Pulse Ox 96% on R/A; ph 13:00 BP 97 / 68; Pulse 103; Resp 18; Pulse Ox 98% on R/A; ph 14:00 BP 90 / 63; Pulse 100; Resp 18; Pulse Ox 99% on R/A; ph 14:48 BP 98 / 73; Pulse 100; Resp 16; Pulse Ox 99% on R/A; ph 15:13 BP 99 / 70; Pulse 98; Resp 18; Pulse Ox 100% on R/A; ph 16:28 BP 107 / 88; Pulse 99; Resp 18; Temp 98.4; Pulse Ox 99% on R/A; ph 11:39 Body Mass Index 18.83 (61.23 kg, 180.34 cm) ph ED Course: 11:37 Patient arrived in ED. ms3 11:38 Edy Jaramillo DO is Attending Physician. ms3 11:39 Lynn Shrestha, ESTEFANY is Primary Nurse. ph 11:41 Triage completed. ph 11:42 Arm band placed on Patient placed in an exam room, on a stretcher, on child monitor, ph on pulse oximetry. 11:45 Patient has correct armband on for positive identification. Bed in low position. Call ph light in reach. Side rails up X2. Client placed on continuous cardiac and pulse oximetry monitoring. NIBP monitoring applied. Door closed. Noise minimized. Warm blanket given. 12:05 Inserted saline lock: 22 gauge in left antecubital area, using aseptic technique. ph Flushed left antecubital with 5 ml normal saline. 13:30 Abdomen In Process Unspecified. EDMS 14:42 initiated transfer to [facility]. bd 14:46 No provider procedures requiring assistance completed. Patient transferred, IV remains ph in place. 16:51 pt accepted in transfer to [facility] by dr Carlton, admin approval given by davon Elkins. Administered Medications: 12:17 Drug: NS 0.9% 1000 ml Route: IV; Rate: 1 bolus; Site: left antecubital; ph 13:30 Follow up: Response: No adverse reaction; IV Status: Completed infusion ph 12:17 Drug: Zofran (Ondansetron) 4 mg Route: IVP; Site: left antecubital; ph 12:45 Follow up: Response: No adverse reaction ph 13:25 Drug: morphine 4 mg Route: IVP; Site: left antecubital; ph 14:00 Follow up: Response: No adverse reaction; Pain is decreased; RASS: Alert and Calm (0) ph 14:35 Drug: NS 0.9% 1000 ml Route: IV; Rate: 1000 ml; Site: left antecubital; ph 15:30 Follow up: Response: No adverse reaction; IV Status: Completed infusion ph 15:50 Drug: Ketamine 0.15 mg/kg Route: IVP; Site: left antecubital; ph 16:30 Follow up: Response: No adverse reaction; Pain is decreased ph Outcome: 14:40 ER care complete, transfer ordered by ms3 17:48 Patient left the ED. ph 17:48 Transferred by ground EMS [facility] to [facility], [facility] [place], Transfer form ph completed. X-rays sent w/ patient. 17:48 Condition: stable 17:48 Instructed on the need for admit. Signatures: Dispatcher [employer] EDMS Mariam Gillette Shelby, RN RN Lynn Shrestha RN RN Edy Jaramillo DO DO ms3
--- NOTE | 2021-10-27 14:41 | EDPHYS ---
Physician Documentation [facility] Name: Kade Benjamin Age: 80 yrs Sex: Male : 1940 Arrival Date: 10/27/2021 Time: 11:37 Bed 7 Private MD: ED Physician Edy Jaramillo HPI: 10/27 14:33 This 80 yrs old Black Male presents to ER via EMS with complaints of abdominal pain/ ms3 back pain. 14:33 The patient presents with abdominal pain in the upper abdomen, abdominal distention. ms3 Onset: The symptoms/episode began/occurred last night. The symptoms radiate to Associated signs and symptoms: Pertinent negatives: nausea, vomiting, and diarrhea, fever. The symptoms are described as Pressure. Modifying factors: The symptoms are alleviated by nothing, the symptoms are aggravated by. Severity of pain: At its worst the pain was severe in the emergency department the pain is unchanged. . Historical: - Allergies: 11:41 No Known Allergies; ph - Home Meds: 11:41 amlodipine oral [Active]; hydrocodone-acetaminophen 5-325 mg Oral tab 1 tab every 6 ph hours [Active]; Pepcid 20 mg Oral tab 1 tab once daily [Active]; - PMHx: 11:41 Hypertension; Prostate Cancer; ph - Immunization history:: Adult Immunizations unknown. - Social history:: Smoking status: Patient denies any tobacco usage or history of. ROS: 14:33 Constitutional: Negative for fever, and chills. Neck: Negative for injury, pain, and ms3 swelling, Cardiovascular: Negative for chest pain, and palpitations. Respiratory: Negative for shortness of breath, cough, wheezing, and pleuritic chest pain, MS/Extremity: Negative for injury and deformity, Skin: Negative for injury, rash, and discoloration. 14:33 Abdomen/GI: Positive for abdominal pain. 14:33 Back: Positive for pain at rest. 14:33 All other systems are negative. Exam: 14:33 Constitutional: This is a well developed, well nourished patient who is awake, alert, ms3 and in no acute distress. Head/Face: Normocephalic, atraumatic. Chest/axilla: Normal chest wall appearance and motion. Nontender with no deformity. Cardiovascular: Regular rate and rhythm with a normal S1 and S2. No gallops, murmurs, or rubs. Normal PMI, no JVD. No pulse deficits. Respiratory: Lungs have equal breath sounds bilaterally, clear to auscultation and percussion. No rales, rhonchi or wheezes noted. No increased work of breathing, no retractions or nasal flaring. Skin: Warm, dry with normal turgor. Normal color with no rashes, no lesions, and no evidence of cellulitis. Psych: Awake, alert, with orientation to person, place and time. Behavior, mood, and affect are within normal limits. 14:33 Abdomen/GI: Inspection: distension, that is mild, Bowel sounds: normal, Palpation: mild abdominal tenderness, in all quadrants. Vital Signs: 11:39 BP 90 / 63; Pulse 116; Resp 16; Temp 97.9; Pulse Ox 98% on R/A; Weight 61.23 kg; Height ph 5 ft. 11 in. (180.34 cm); Pain 8/10; 12:19 BP 81 / 57; Pulse 111; Resp 16; Pulse Ox 96% on R/A; ph 13:00 BP 97 / 68; Pulse 103; Resp 18; Pulse Ox 98% on R/A; ph 14:00 BP 90 / 63; Pulse 100; Resp 18; Pulse Ox 99% on R/A; ph 14:48 BP 98 / 73; Pulse 100; Resp 16; Pulse Ox 99% on R/A; ph 15:13 BP 99 / 70; Pulse 98; Resp 18; Pulse Ox 100% on R/A; ph 16:28 BP 107 / 88; Pulse 99; Resp 18; Temp 98.4; Pulse Ox 99% on R/A; ph 11:39 Body Mass Index 18.83 (61.23 kg, 180.34 cm) ph MDM: 11:37 Patient medically screened. ms3 14:33 Differential diagnosis: bowel obstruction, diverticulitis, gastritis, Malignancy. Data ms3 reviewed: vital signs, nurses notes, lab test result(s), radiologic studies. Counseling: I had a detailed discussion with the patient and/or guardian regarding: the historical points, exam findings, and any diagnostic results supporting the discharge/admit diagnosis, lab results, radiology results, the need to transfer to another facility. ED course: Discussed case with Dr Willams, patient's urologist, and patient will require left percutaneous nephrostomy tube. Unable to be placed at [facility]. Patient will require transfer.. 15:29 ED course: Discussed case with Meliton Horner and he accepts patient to [facility]. ms3 Discussed plan with patient and his and they agree with plan.. 10/27 11:39 Order name: CBC with Diff; Complete Time: 15:27 ms3 10/27 11:39 Order name: CMP; Complete Time: 13:49 ms3 10/27 11:39 Order name: Lipase; Complete Time: 13:49 ms3 10/27 14:39 Order name: CBC Smear Scan; Complete Time: 15:27 EDMS 10/27 14:41 Order name: COVID-19 SARS RT PCR (Document "Date of Onset" if Symptomatic); Complete bd Time: 16:14 10/27 13:19 Order name: Abdomen ; Complete Time: 14:13 EDMS 10/27 11:39 Order name: IV Saline Lock; Complete Time: 13:06 ms3 10/27 11:39 Order name: Labs collected and sent; Complete Time: 13:06 ms3 Administered Medications: 12:17 Drug: NS 0.9% 1000 ml Route: IV; Rate: 1 bolus; Site: left antecubital; ph 13:30 Follow up: Response: No adverse reaction; IV Status: Completed infusion ph 12:17 Drug: Zofran (Ondansetron) 4 mg Route: IVP; Site: left antecubital; ph 12:45 Follow up: Response: No adverse reaction ph 13:25 Drug: morphine 4 mg Route: IVP; Site: left antecubital; ph 14:00 Follow up: Response: No adverse reaction; Pain is decreased; RASS: Alert and Calm (0) ph 14:35 Drug: NS 0.9% 1000 ml Route: IV; Rate: 1000 ml; Site: left antecubital; ph 15:30 Follow up: Response: No adverse reaction; IV Status: Completed infusion ph 15:50 Drug: Ketamine 0.15 mg/kg Route: IVP; Site: left antecubital; ph 16:30 Follow up: Response: No adverse reaction; Pain is decreased ph Disposition Summary: 10/27/21 14:40 Transfer Ordered Transfer Location: Other Acute Care Facility ms3 Reason: Higher level of care ms3 Condition: Stable ms3 Problem: new ms3 Symptoms: are unchanged ms3 Accepting Physician: .(10/27/21 17:48) ph Diagnosis - Bilateral hydronephrosis ms3 - Prostate cancer with metastasis ms3 - Acute Kidney injury ms3 Forms: - Medication Reconciliation Form ms3 - SBAR form ms3 Signatures: Dispatcher [employer] EDLynn Lawrence RN RN ph Edy Jaramillo DO DO ms3 Corrections: (The following items were deleted from the chart) 13:19 11:43 Abdomen Pelvis W Con+CT.RAD.BRZ ordered. EDMS EDMS 14:04 13:52 Abdomen Pelvis Wo Con+CT.RAD.BRZ ordered. EDMS EDMS 17:48 14:40 . ms3 ph
[2021-10-27] MEDS ORDERED: KETAMINE HCL 500 MG/5 ML VIAL ONE (15:50)
[2021-10-27 18:19] VITALS: BP 107/88; TEMP 98.4; O2SAT 99
== END 2021-10-27 17:48 ==
LOC: ER 11:34
DX: N13.30 Unspecified hydronephrosis (principal); C79.51 Secondary malignant neoplasm of bone; C61 Malignant neoplasm of prostate; N17.9 Acute kidney failure, unspecified; I10 Essential (primary) hypertension; Z20.822 Contact with and (suspected) exposure to COVID-19
CPT/HCPCS: 96361; 85025; 36415; 83690; 80053; 74176; 96375; 96374; 99285; U0003; J7030 ×2; J2405